=== PATIENT | male | born 1940 | race Caucasian/White ===

== ENCOUNTER 2019-10-21 11:09 | Inpatient (IN) | payer MEDICARE ==
[2019-10-21 11:48] LABS: Absolute Neutrophil Ct (ANC) 17.04 (1.4-6.9); BASOPHIL % 0.2 % (0.0-0.4); Basophil (Absolute #) 0.03 (0-0.4); Eosinophil (Absolute #) 0 (0-0.5); Hematocrit 36.7 % (42-50); Hemoglobin 12.1 gm/dl (12.5-18.0); Lymphocyte (Absolute #) 0.85 (1.0-4.6); Lymphocytes % 4.4 % (24.0-44.0); Mean Cell Volume 97.1 fl (78-100); Mean Platelet Volume 10.3 fl (7.5-11.0); Monocyte (Absolute #) 1.47 (0.0-1.3); Monocytes % 7.6 % (0.0-12.0); Neutrophil % 87.8 % (36.0-66.0); Platelet Count 171 K/mm3 (150-450); Red Blood Count 3.78 M/mm3 (4.1-5.6); Red Cell Distribution Width 13.6 % (11.5-14.0); White Blood Count 19.4 K/mm3 (4.0-10.5)
[2019-10-21 11:55] LABS: INR 1.31 (0.8-3.0); PROTIME 14.9 SECONDS (8.83-12.87)
[2019-10-21 11:58] LABS: PTT 27.2 SECONDS (24.1-36.1)
[2019-10-21 11:59] LABS: A-aADO2 35; ABG HEMOGLOBIN 14.8; ABG SITE RIGHT RADIAL; ALLEN TEST OK? YES; ARTERIAL BLD GAS O2 SATURATION 97.4 % (95-100); ARTERIAL BLOOD GAS BASE EXCESS 1.6 (-2.0-2.0); ARTERIAL BLOOD GAS FIO2 21 %; ARTERIAL BLOOD GAS PCO2 33 mmHg (35-45); ARTERIAL BLOOD GAS PO2 73 mmHg (75-100); ARTERIAL BLOOD GAS pH 7.48 (7.35-7.45); CARBOXYHEMOGLOBIN 1.5 % THgb (0.0-6.9); HCO3- 24.6 (22-28); HGB O2 SAT 94.9 g/dF (94-100); Methhemoglobin 1.1 % (1.4-1.5); paO2 pAO1 0.68
--- NOTE | 2019-10-21 11:59 | ERPHSYRPT ---
- History of Present Illness Time Seen by Provider: 10/21/19 11:19 Source: patient Exam Limitations: no limitations Physician History: Patient is an 79-year-old male presents to our ED for evaluation of a fall. Patient stood up from his chair and fell onto his left elbow. Patient states that his body was shivering. He could not stand back up on his own. Patient crawled to the bathroom. Patient presented to our ED for evaluation of elbow pain. However in triage patient was observed to be febrile. Patient then complains of shortness of breath. Patient symptoms have been ongoing for 1 day. Symptoms have been constant. No associated chest pain or shortness of breath. Patient denied Covid-19 exposure. Timing/Duration: today Fever Severity: mild Fever Therapy [employer]: none Associated Symptoms: weakness International travel in last 2 weeks: No Allergies/Adverse Reactions: Penicillins Allergy (Verified 10/21/19 12:09) Sulfa (Sulfonamide Antibiotics) Allergy (Verified 10/21/19 12:09) Home Medications: Aspirin 81 mg PO DAILY 09/18/13 [History] Ascorbic Acid 500 mg [Vitamin C 500 MG] 500 mg PO DAILY 04/11/16 [History] Calcium [Natural Calcium] 500 mg PO DAILY 04/11/16 [History] Ferrous Sulfate 325 mg PO DAILY 04/11/16 [History] Iron 18 mg PO DAILY 04/11/16 [History] Lovastatin 40 mg PO DAILY 04/11/16 [History] Metoprolol Succinate 25 mg PO DAILY 04/11/16 [History] Tamsulosin HCl 0.4 mg [Flomax 0.4 MG] 0.4 mg PO DAILY 04/11/16 [History] Cinacalcet HCl 60 mg PO DAILY 10/21/19 [History] Hx Tetanus, Diphtheria Vaccination/Date Given: Yes (up to date) Hx Influenza Vaccination/Date Given: Yes Hx Pneumococcal Vaccination/Date Given: Yes Travel Risk - International Travel Have you traveled outside of the country in past 3 weeks: No Have you or anyone close to you been diagnosed with or: No Do your reside in a community with a known COVID-19 case?: Yes If Yes where:: [place] - Review of Systems Constitutional: No Symptoms, Weakness, No Fever, No Chills Eyes: No Symptoms Ears, Nose, & Throat: No Symptoms Respiratory: No Symptoms, Cough, Dyspnea on Exertion (GARCIA), No Dyspnea Cardiac: No Chest Pain, No Edema, No Syncope Abdominal/Gastrointestinal: No Abdominal Pain, No Nausea, No Vomiting, No Diarrhea Genitourinary Symptoms: No Dysuria Musculoskeletal: Other (Left elbow pain. No other musculoskeletal pain.), No Back Pain, No Neck Pain Skin: No Symptoms, No Rash Neurological: No Symptoms, Focal Weakness, No Dizziness, No Sensory Changes Psychological: No Symptoms Endocrine: No Symptoms Hematologic/Lymphatic: No Symptoms All Other Systems: Reviewed and Negative - Past Medical History Pertinent Past Medical History: Yes Neurological History: No Pertinent History ENT History: No Pertinent History Cardiac History: Congestive Heart Failure Respiratory History: Asthma Endocrine Medical History: No Pertinent History Musculoskeletal History: Arthritis GI Medical History: No Pertinent History History: No Pertinent History Psycho-Social History: No Pertinent History Male Reproductive Disorders: No Pertinent History Other Medical History: poor historian - Past Surgical History Past Surgical History: Yes Gastrointestinal: Other Other Surgical History: KIDNEY STONE REMOVAL. poor historian - Social History Smoking Status: Former smoker Exposure to second hand smoke: No Drug Use: none Patient Lives Alone: Yes - Nursing Vital Signs Nursing Vital Signs: Initial Vital Signs Temperature 100.1 F 10/21/19 11:43 Pulse Rate 112 H 10/21/19 11:43 Blood Pressure 148/78 10/21/19 11:43 O2 Sat by Pulse Oximetry 95 10/21/19 11:43 Pain Scale Pain Intensity 0 - Physical Exam General Appearance: no apparent distress, alert Eye Exam: PERRL/EOMI ENT Exam: normal ENT inspection, No pharyngeal erythema, No tonsillar exudate Neck Exam: normal inspection, supple, full range of motion, No meningismus Respiratory Exam: normal breath sounds, lungs clear, no respiratory distress Cardiovascular/Chest Exam: normal heart sounds, regular rate/rhythm, No murmur, No edema Gastrointestinal/Abdominal Exam: soft, non tender, no distention Extremity Exam: non-tender, normal range of motion, normal inspection, normal capillary refill, no pedal edema, joint swelling (Some tenderness at right elbow. No open or draining lesions. Extremities neurovascular intact distally. ) Neurologic Exam: alert, oriented x 3, cooperative, deputy grand jury II-XII nml as tested, normal mood/affect, sensation nml, No motor deficits Skin Exam: normal color, warm, dry, No rash SpO2 Interpretation: normal SpO2: 98 O2 Delivery: Room Air - Course Nursing assessment & vital signs reviewed: Yes EKG Interpreted by Me: Sinus Tach, NORMAL AXIS, Right [place] Deviation, Non- specific ST Changes - Radiology Exams Chest X-ray Interpretation: Teleradiologist Report (No acute pathology) Elbow X-ray Interpretation: Teleradiologist Report (no fracture/dislocation, chronic changes. ) Ordered Tests: Active Orders 24 hr Category Date Time Status Forensic Analyst STAT Care 10/21/19 11:22 Active EKG-ER Only STAT Care 10/21/19 11:19 Active IV Insertion STAT Care 10/21/19 11:19 Active Isolation, Initiate & Maintain Q12H Care 10/21/19 12:07 Active Isolation, Initiate & Maintain Q4H Care 10/21/19 11:34 Active Pulse Oximetry (ED) STAT Care 10/21/19 11:19 Active CHEST 1 VIEW (PORTABLE) Stat Exams 10/21/19 11:21 Completed ELBOW (MINIMUM 3 VIEWS) Stat Exams 10/21/19 11:43 Completed ARTERIAL BLOOD GASES Stat Lab 10/21/19 11:56 Completed BLOOD CULTURE Stat Lab 10/21/19 11:21 Received CBC W DIFF Stat Lab 10/21/19 11:35 Completed CMP Stat Lab 10/21/19 11:35 Completed CULTURE,URINE Stat Lab 10/21/19 Received Lactic Acid Stat Lab 10/21/19 11:56 Completed MAGNESIUM Stat Lab 10/21/19 11:35 Completed PROTIME WITH INR Stat Lab 10/21/19 11:35 Completed PTT Stat Lab 10/21/19 11:35 Completed TROPONIN Q3H Lab 10/21/19 11:35 Completed TROPONIN Q3H Lab 10/21/19 14:30 Ordered TROPONIN Q3H Lab 10/21/19 17:30 Ordered TROPONIN Q3H Lab 10/21/19 20:30 Ordered TROPONIN Q3H Lab 10/21/19 23:30 Ordered UA W/RFX UR CULTURE Stat Lab 10/21/19 Completed Transfer Order Routine Transfer 10/21/19 Ordered Medication Summary Generic Name Dose Route Start Last Admin Trade Name Freq PRN Reason Stop Dose Admin Sodium Chloride 1,000 mls @ 100 mls/hr 10/21/19 12:45 10/21/19 12:57 Sodium Chloride 0.9% 1000 Ml IV 11/20/19 12:44 100 mls/hr .Q10H TREY Administration Levofloxacin/Dextrose 250 mg in 50 mls @ 50 mls/hr 10/21/19 12:52 10/21/19 12 :57 Levaquin 250mg/50ml D5w IV 10/21/19 13:51 50 mls/hr STAT STA 50 mls/hr Administration Discontinued Medications Generic Name Dose Route Start Last Admin Trade Name Antonio PRN Reason Stop Dose Admin Levofloxacin/Dextrose Confirm 10/21/19 12:56 Levaquin 250mg/50ml D5w Administered 10/21/19 12:57 Dose 250 mg in 50 mls @ ud IV .STK-MED ONE Lab/Rad Data: Laboratory Result Diagrams 10/21/19 11:35 10/21/19 11:35 Laboratory Results 10/21/19 10/21/19 10/21/19 Range/Units Unknown 11:56 11:56 WBC (4.0-10.5) K/mm3 RBC (4.1-5.6) M/mm3 Hgb (12.5-18.0) gm/dl Hct (42-50) % MCV (78-100) fl MCH (26-32) pg MCHC (32-36) g/dl RDW (11.5-14.0) % Plt Count (150-450) K/mm3 MPV (7.5-11.0) fl Gran % (36.0-66.0) % Eos # (Auto) (0-0.5) Absolute Lymphs (auto) (1.0-4.6) Absolute Monos (auto) (0.0-1.3) Lymphocytes % (24.0-44.0) % Monocytes % (0.0-12.0) % Eosinophils % (0.00-5.0) % Basophils % (0.0-0.4) % Absolute Granulocytes (1.4-6.9) Basophils # (0-0.4) PT (8.83-12.87) SECONDS INR (0.8-3.0) APTT (24.1-36.1) SECONDS Puncture Site RIGHT RADIAL pCO2 33 L (35-45) mmHg pO2 73 L (75-100) mmHg Base Excess 1.6 (-2.0-2.0) O2 Saturation 94.9 (94-100) g/dF ABG pH 7.48 H (7.35-7.45) ABG HCO3 24.6 (22-28) ABG O2 Sat (Measured) 97.4 (95-100) % Ermias Test YES A-a Gradient 35 a/A Ratio 0.68 Hemoglobin 14.8 Carboxyhemoglobin 1.5 (0.0-6.9) % THgb Methemoglobin 1.1 L (1.4-1.5) % Temperature 37.0 C POC O2 Flow Rate 21 % Sodium (137-145) mmol/L Potassium 4.0 (3.5-5.1) mmol/L Chloride (98-107) mmol/L Carbon Dioxide (22-30) mmol/L Anion Gap (5-15) MEQ/L BUN (9-20) mg/dL Creatinine (0.66-1.25) mg/dL Estimated GFR ML/MIN Glucose (74-106) mg/dL Lactic Acid 1.9 (0.4-2.0) Calcium (8.4-10.2) mg/dL Magnesium (1.6-2.3) mg/dL Total Bilirubin (0.2-1.3) mg/dL AST (17-59) U/L ALT (0-50) U/L Alkaline Phosphatase (38-126) U/L Troponin I (0.000-0.034) ng/mL Serum Total Protein (6.3-8.2) g/dL Albumin (3.5-5.0) g/dL Urine Color MIKE (YELLOW) Urine Appearance TURBID (CLEAR) Urine pH 5.0 (5-6) Ur Specific [place] 1.019 (1.005-1.025) Urine Protein 100 (Negative) Urine Ketones NEGATIVE (NEGATIVE) Urine Blood LARGE (0-5) Isai/ul Urine Nitrite NEGATIVE (NEGATIVE) Urine Bilirubin NEGATIVE (NEGATIVE) Urine Urobilinogen NEGATIVE (0-1) mg/dL Ur Leukocyte Esterase LARGE (NEGATIVE) Urine WBC (Auto) >100 (0-5) /HPF Urine RBC (Auto) 26-50 (0-2) /HPF U Epithel Cells (Auto) NONE (FEW) /HPF Urine Bacteria (Auto) MODERATE (NEGATIVE) /HPF Urine Culture Reflexed YES (NO) Urine Glucose NEGATIVE (NEGATIVE) mg/dL Influenza Type A Ag (NEGATIVE) Influenza Type B Ag (NEGATIVE) RSV (PCR) (Negative) 10/21/19 10/21/19 10/21/19 Range/Units 11:35 11:35 11:35 WBC (4.0-10.5) K/mm3 RBC (4.1-5.6) M/mm3 Hgb (12.5-18.0) gm/dl Hct (42-50) % MCV (78-100) fl MCH (26-32) pg MCHC (32-36) g/dl RDW (11.5-14.0) % Plt Count (150-450) K/mm3 MPV (7.5-11.0) fl Gran % (36.0-66.0) % Eos # (Auto) (0-0.5) Absolute Lymphs (auto) (1.0-4.6) Absolute Monos (auto) (0.0-1.3) Lymphocytes % (24.0-44.0) % Monocytes % (0.0-12.0) % Eosinophils % (0.00-5.0) % Basophils % (0.0-0.4) % Absolute Granulocytes (1.4-6.9) Basophils # (0-0.4) PT 14.9 H (8.83-12.87) SECONDS INR 1.31 (0.8-3.0) APTT 27.2 (24.1-36.1) SECONDS Puncture Site pCO2 (35-45) mmHg pO2 (75-100) mmHg Base Excess (-2.0-2.0) O2 Saturation (94-100) g/dF ABG pH (7.35-7.45) ABG HCO3 (22-28) ABG O2 Sat (Measured) (95-100) % Ermias Test A-a Gradient a/A Ratio Hemoglobin Carboxyhemoglobin (0.0-6.9) % THgb Methemoglobin (1.4-1.5) % Temperature C POC O2 Flow Rate % Sodium (137-145) mmol/L Potassium (3.5-5.1) mmol/L Chloride (98-107) mmol/L Carbon Dioxide (22-30) mmol/L Anion Gap (5-15) MEQ/L BUN (9-20) mg/dL Creatinine (0.66-1.25) mg/dL Estimated GFR ML/MIN Glucose (74-106) mg/dL Lactic Acid (0.4-2.0) Calcium (8.4-10.2) mg/dL Magnesium (1.6-2.3) mg/dL Total Bilirubin (0.2-1.3) mg/dL AST (17-59) U/L ALT (0-50) U/L Alkaline Phosphatase (38-126) U/L Troponin I 0.081 H* (0.000-0.034) ng/mL Serum Total Protein (6.3-8.2) g/dL Albumin (3.5-5.0) g/dL Urine Color (YELLOW) Urine Appearance (CLEAR) Urine pH (5-6) Ur Specific [place] (1.005-1.025) Urine Protein (Negative) Urine Ketones (NEGATIVE) Urine Blood (0-5) Isai/ul Urine Nitrite (NEGATIVE) Urine Bilirubin (NEGATIVE) Urine Urobilinogen (0-1) mg/dL Ur Leukocyte Esterase (NEGATIVE) Urine WBC (Auto) (0-5) /HPF Urine RBC (Auto) (0-2) /HPF U Epithel Cells (Auto) (FEW) /HPF Urine Bacteria (Auto) (NEGATIVE) /HPF Urine Culture Reflexed (NO) Urine Glucose (NEGATIVE) mg/dL Influenza Type A Ag NEGATIVE (NEGATIVE) Influenza Type B Ag NEGATIVE (NEGATIVE) RSV (PCR) NEGATIVE (Negative) 10/21/19 10/21/19 Range/Units 11:35 11:35 WBC 19.4 H (4.0-10.5) K/mm3 RBC 3.78 L (4.1-5.6) M/mm3 Hgb 12.1 L (12.5-18.0) gm/dl Hct 36.7 L (42-50) % MCV 97.1 (78-100) fl MCH 32.0 (26-32) pg MCHC 33.0 (32-36) g/dl RDW 13.6 (11.5-14.0) % Plt Count 171 (150-450) K/mm3 MPV 10.3 (7.5-11.0) fl Gran % 87.8 H (36.0-66.0) % Eos # (Auto) 0 (0-0.5) Absolute Lymphs (auto) 0.85 L (1.0-4.6) Absolute Monos (auto) 1.47 H (0.0-1.3) Lymphocytes % 4.4 L (24.0-44.0) % Monocytes % 7.6 (0.0-12.0) % Eosinophils % 0.0 (0.00-5.0) % Basophils % 0.2 (0.0-0.4) % Absolute Granulocytes 17.04 H (1.4-6.9) Basophils # 0.03 (0-0.4) PT (8.83-12.87) SECONDS INR (0.8-3.0) APTT (24.1-36.1) SECONDS Puncture Site pCO2 (35-45) mmHg pO2 (75-100) mmHg Base Excess (-2.0-2.0) O2 Saturation (94-100) g/dF ABG pH (7.35-7.45) ABG HCO3 (22-28) ABG O2 Sat (Measured) (95-100) % Ermias Test A-a Gradient a/A Ratio Hemoglobin Carboxyhemoglobin (0.0-6.9) % THgb Methemoglobin (1.4-1.5) % Temperature C POC O2 Flow Rate % Sodium 145 (137-145) mmol/L Potassium 4.2 (3.5-5.1) mmol/L Chloride 105 (98-107) mmol/L Carbon Dioxide 27 (22-30) mmol/L Anion Gap 16.7 H (5-15) MEQ/L BUN 39 H (9-20) mg/dL Creatinine 3.28 H (0.66-1.25) mg/dL Estimated GFR 19.4 ML/MIN Glucose 172 H (74-106) mg/dL Lactic Acid (0.4-2.0) Calcium 10.5 H (8.4-10.2) mg/dL Magnesium 1.7 (1.6-2.3) mg/dL Total Bilirubin 0.90 (0.2-1.3) mg/dL AST 143 H (17-59) U/L ALT 36 (0-50) U/L Alkaline Phosphatase 96 (38-126) U/L Troponin I (0.000-0.034) ng/mL Serum Total Protein 7.7 (6.3-8.2) g/dL Albumin 4.4 (3.5-5.0) g/dL Urine Color (YELLOW) Urine Appearance (CLEAR) Urine pH (5-6) Ur Specific [place] (1.005-1.025) Urine Protein (Negative) Urine Ketones (NEGATIVE) Urine Blood (0-5) Isai/ul Urine Nitrite (NEGATIVE) Urine Bilirubin (NEGATIVE) Urine Urobilinogen (0-1) mg/dL Ur Leukocyte Esterase (NEGATIVE) Urine WBC (Auto) (0-5) /HPF Urine RBC (Auto) (0-2) /HPF U Epithel Cells (Auto) (FEW) /HPF Urine Bacteria (Auto) (NEGATIVE) /HPF Urine Culture Reflexed (NO) Urine Glucose (NEGATIVE) mg/dL Influenza Type A Ag (NEGATIVE) Influenza Type B Ag (NEGATIVE) RSV (PCR) (Negative) - Progress Progress: improved Progress Note: Patient reassessed. Symptoms improved. IV fluids infused. Antibiotics ordered. Patient appears to have urosepsis, dehydration with acute on chronic renal injury. Troponin somewhat elevated likely due to worsening renal function. We will trend troponin. Patient has no chest pain. 10/21/19 13:[address] Priyank Will see patient in: hospital (full admit) Counseled pt/family regarding: lab results, diagnosis, rad results - Departure Departure Disposition: In-patient Admission Clinical Impression: Sepsis, Dehydration, Acute renal injury, Leukocytosis, Tachycardia, Elbow contusion, Osteopenia, UTI (urinary tract infection), Elevated troponin Condition: Stable Critical Care Time: Yes Critical Care Time(excluding separately billable procedures): Critical 75-104 mins Referrals: AYANNA FARR [Primary Care Provider] -
[2019-10-21 12:00] LABS: ALBUMIN 4.4 g/dL (3.5-5.0); ANION GAP 16.7 MEQ/L (5-15); BILIRUBIN,TOTAL 0.9 mg/dL (0.2-1.3); Calcium 10.5 mg/dL (8.4-10.2); Creatinine 1 3.28 mg/dL (0.66-1.25); MAGNESIUM 1.7 mg/dL (1.6-2.3); Potassium 4.2 mmol/L (3.5-5.1); Total Protein 7.7 g/dL (6.3-8.2)
[2019-10-21 12:18] LABS: INFLUENZA A NEGATIVE (NEGATIVE); INFLUENZA B NEGATIVE (NEGATIVE); RESPIRATORY SYNCTIAL VIRUS NEGATIVE (Negative)
[2019-10-21 12:23] LABS: Appearance TURBID (CLEAR); Bacteria MODERATE /HPF (NEGATIVE); Bilirubin NEGATIVE (NEGATIVE); Blood LARGE Ery/ul (0-5); Glucose NEGATIVE (NEGATIVE); Ketones NEGATIVE (NEGATIVE); Leukocyte Esterase LARGE (NEGATIVE); Nitrite NEGATIVE (NEGATIVE); Protein,Urine Dip 100 (Negative); RBC 26-50 /HPF (0-2); Specific Gravity 1.019 (1.005-1.025); Urobilinogen NEGATIVE mg/dL (0-1); WBC >100 /HPF (0-5)
--- NOTE | 2019-10-21 12:26 | XRAY ---
Indication: Short of breath. Status post fall. Comparison: August 30, 2014. Portable chest again demonstrates normal heart and lungs. Bony thorax intact with mild osteopenia, degenerative changes, and old right 8/9 rib fractures. No new/acute findings.
--- NOTE | 2019-10-21 12:28 | XRAY ---
Indication: Pain following fall. Comparison: None 3 views of the right elbow demonstrates mild osteopenia and spurring of the olecranon process/coronoid process/medial epicondyle. No other bony, articular, or soft tissue abnormalities.
[2019-10-21] MEDS ORDERED: Sodium Chloride 0.9% 1000 ML 1,000 ML IV SCH (12:45)
[2019-10-21] MEDS ORDERED: Levaquin 250MG/50ML D5W 250 MG/50 ML BAG IV STA (12:52)
[2019-10-21] MEDS ORDERED: Levaquin 250MG/50ML D5W 250 MG/50 ML BAG IV ONE (12:56)
[2019-10-21] MEDS ORDERED: Sodium Chloride 0.9% 1000 ML 1,000 ML ONE (12:56)
[2019-10-21] MEDS ORDERED: Zofran 4 MG/2 ML VIAL IV PRN (13:25)
[2019-10-21 15:03] LABS: Slide Review 1 YES
[2019-10-21] MEDS: TYLENOL 325 MG PO PRN (16:15)
--- NOTE | 2019-10-21 16:30 | PCM.HP ---
History of Present Illness - Chief Complaint Chief Complaint: Urosepsis. Dehydraiton. Actue Renal. Injury. Leukocytosis. Suspect Covid. History of Present Illness: is a 79 year old male patient of Dr Dahlia Reza, he presented to the ER because he woke up this morning feeling weak and dizzy, he lindsey to stand and fell back on his bed. he had to crawl to the restroom due to feeling dizzy and weak, he denies any known fever, no urinary symptoms, no cough, no chest pain or any other symptoms before he woke up weak and dizzy this morning. - Review of Systems Constitutional: Chills, Weakness Respiratory: No Cough, No Short Of Breath Cardiac: No Chest Pain, No Edema, No Syncope Abdominal/Gastrointestinal: No Abdominal Pain, No Nausea, No Vomiting, No Diarrhea Genitourinary Symptoms: No Dysuria Skin: No Rash All Other Systems: Reviewed and Negative Medications & Allergies Home Medications: Home Medication List Aspirin 81 mg PO DAILY 09/18/13 [History Confirmed 10/21/19] Ascorbic Acid 500 mg [Vitamin C 500 MG] 500 mg PO DAILY 04/11/16 [History Confirmed 10/21/19] Calcium [Natural Calcium] 500 mg PO DAILY 04/11/16 [History Confirmed 10/21/19] Ferrous Sulfate 325 mg PO DAILY 04/11/16 [History Confirmed 10/21/19] Iron 18 mg PO DAILY 04/11/16 [History Confirmed 10/21/19] Lovastatin 40 mg PO DAILY 04/11/16 [History Confirmed 10/21/19] Metoprolol Succinate 25 mg PO DAILY 04/11/16 [History Confirmed 10/21/19] Tamsulosin HCl 0.4 mg [Flomax 0.4 MG] 0.4 mg PO DAILY 04/11/16 [History Confirmed 10/21/19] Cinacalcet HCl 60 mg PO DAILY 10/21/19 [History Confirmed 10/21/19] Allergies/Adverse Reactions: Allergies Allergy/AdvReac Type Severity Reaction Status Date / Time Penicillins Allergy Verified 10/21/19 12:09 Sulfa (Sulfonamide Allergy Verified 10/21/19 12:09 Antibiotics) - Past Medical History Past Medical History: Yes Neurological History: No Pertinent History ENT History: No Pertinent History Cardiac History: Congestive Heart Failure Respiratory History: Asthma Endocrine Medical History: No Pertinent History Musculoskelatal History: Arthritis GI Medical History: No Pertinent History History: No Pertinent History Pyscho-Social History: No Pertinent History Male Reproductive Disorders: No Pertinent History Comment: poor historian - Past Surgical History Past Surgical History: Yes Neuro Surgical History: No Pertinent History Cardiac History: No Pertinent History Respiratory Surgery: No Pertinent History GI Surgical History: No Pertinent History, Other Genitourinary Surgical Hx: No Pertinent History Musculskeletal Surgical Hx: No Pertinent History Other Surgical History: KIDNEY STONE REMOVAL. poor historian - Social History Smoking Status: Former smoker How long have you smoked: 30 years Exposure to second hand smoke: No Alcohol: None Drug Use: none - Physical Exam Vital Signs: Vital Signs - 24 hr Temp Pulse Resp BP Pulse Ox 10/21/19 16:12 100.5 F 131 H 22 118/59 98 10/21/19 15:12 102.0 F 104 H 18 159/83 94 L 10/21/19 14:05 94 L 10/21/19 13:25 102.0 F 104 H 18 159/83 98 10/21/19 13:13 98 10/21/19 13:00 102.0 F 104 H 18 159/83 98 10/21/19 12:07 100.1 F 103 H 142/68 98 10/21/19 11:43 100.1 F 112 H 148/78 95 General Appearance: no apparent distress Neurologic Exam: alert, cooperative Eye Exam: PERRL/EOMI, eyes nml inspection Respiratory Exam: normal breath sounds, lungs clear, No respiratory distress Cardiovascular Exam: regular rate/rhythm, normal heart sounds, normal peripheral pulses Gastrointestinal/Abdomen Exam: soft, normal bowel sounds, No tenderness, No mass Extremity Exam: normal inspection, normal range of motion, pelvis stable Skin Exam: normal color, warm, dry, No rash Results - Labs Lab/Micro Results: Lab Results-Last 24 Hours 10/21/19 10/21/19 10/21/19 Range/Units 11:35 11:35 11:35 WBC 19.4 H (4.0-10.5) K/mm3 RBC 3.78 L (4.1-5.6) M/mm3 Hgb 12.1 L (12.5-18.0) gm/dl Hct 36.7 L (42-50) % MCV 97.1 (78-100) fl MCH 32.0 (26-32) pg MCHC 33.0 (32-36) g/dl RDW 13.6 (11.5-14.0) % Plt Count 171 (150-450) K/mm3 MPV 10.3 (7.5-11.0) fl Gran % 87.8 H (36.0-66.0) % Eos # (Auto) 0 (0-0.5) Absolute Lymphs (auto) 0.85 L (1.0-4.6) Absolute Monos (auto) 1.47 H (0.0-1.3) Lymphocytes % 4.4 L (24.0-44.0) % Monocytes % 7.6 (0.0-12.0) % Eosinophils % 0.0 (0.00-5.0) % Basophils % 0.2 (0.0-0.4) % Absolute Granulocytes 17.04 H (1.4-6.9) Basophils # 0.03 (0-0.4) PT 14.9 H (8.83-12.87) SECONDS INR 1.31 (0.8-3.0) APTT 27.2 (24.1-36.1) SECONDS Puncture Site pCO2 (35-45) mmHg pO2 (75-100) mmHg Base Excess (-2.0-2.0) O2 Saturation (94-100) g/dF ABG pH (7.35-7.45) ABG HCO3 (22-28) ABG O2 Sat (Measured) (95-100) % Ermias Test A-a Gradient a/A Ratio Hemoglobin Carboxyhemoglobin (0.0-6.9) % THgb Methemoglobin (1.4-1.5) % Temperature C POC O2 Flow Rate % Sodium 145 (137-145) mmol/L Potassium 4.2 (3.5-5.1) mmol/L Chloride 105 (98-107) mmol/L Carbon Dioxide 27 (22-30) mmol/L Anion Gap 16.7 H (5-15) MEQ/L BUN 39 H (9-20) mg/dL Creatinine 3.28 H (0.66-1.25) mg/dL Estimated GFR 19.4 ML/MIN Glucose 172 H (74-106) mg/dL Lactic Acid (0.4-2.0) Calcium 10.5 H (8.4-10.2) mg/dL Magnesium 1.7 (1.6-2.3) mg/dL Total Bilirubin 0.90 (0.2-1.3) mg/dL AST 143 H (17-59) U/L ALT 36 (0-50) U/L Alkaline Phosphatase 96 (38-126) U/L Troponin I (0.000-0.034) ng/mL Serum Total Protein 7.7 (6.3-8.2) g/dL Albumin 4.4 (3.5-5.0) g/dL Urine Color (YELLOW) Urine Appearance (CLEAR) Urine pH (5-6) Ur Specific Glidden (1.005-1.025) Urine Protein (Negative) Urine Ketones (NEGATIVE) Urine Blood (0-5) Isai/ul Urine Nitrite (NEGATIVE) Urine Bilirubin (NEGATIVE) Urine Urobilinogen (0-1) mg/dL Ur Leukocyte Esterase (NEGATIVE) Urine WBC (Auto) (0-5) /HPF Urine RBC (Auto) (0-2) /HPF U Epithel Cells (Auto) (FEW) /HPF Urine Bacteria (Auto) (NEGATIVE) /HPF Urine Culture Reflexed (NO) Urine Glucose (NEGATIVE) mg/dL Influenza Type A Ag (NEGATIVE) Influenza Type B Ag (NEGATIVE) RSV (PCR) (Negative) Slides for Path Review YES 10/21/19 10/21/19 10/21/19 Range/Units 11:35 11:35 11:56 WBC (4.0-10.5) K/mm3 RBC (4.1-5.6) M/mm3 Hgb (12.5-18.0) gm/dl Hct (42-50) % MCV (78-100) fl MCH (26-32) pg MCHC (32-36) g/dl RDW (11.5-14.0) % Plt Count (150-450) K/mm3 MPV (7.5-11.0) fl Gran % (36.0-66.0) % Eos # (Auto) (0-0.5) Absolute Lymphs (auto) (1.0-4.6) Absolute Monos (auto) (0.0-1.3) Lymphocytes % (24.0-44.0) % Monocytes % (0.0-12.0) % Eosinophils % (0.00-5.0) % Basophils % (0.0-0.4) % Absolute Granulocytes (1.4-6.9) Basophils # (0-0.4) PT (8.83-12.87) SECONDS INR (0.8-3.0) APTT (24.1-36.1) SECONDS Puncture Site RIGHT RADIAL pCO2 33 L (35-45) mmHg pO2 73 L (75-100) mmHg Base Excess 1.6 (-2.0-2.0) O2 Saturation 94.9 (94-100) g/dF ABG pH 7.48 H (7.35-7.45) ABG HCO3 24.6 (22-28) ABG O2 Sat (Measured) 97.4 (95-100) % Ermias Test YES A-a Gradient 35 a/A Ratio 0.68 Hemoglobin 14.8 Carboxyhemoglobin 1.5 (0.0-6.9) % THgb Methemoglobin 1.1 L (1.4-1.5) % Temperature 37.0 C POC O2 Flow Rate 21 % Sodium (137-145) mmol/L Potassium 4.0 (3.5-5.1) mmol/L Chloride (98-107) mmol/L Carbon Dioxide (22-30) mmol/L Anion Gap (5-15) MEQ/L BUN (9-20) mg/dL Creatinine (0.66-1.25) mg/dL Estimated GFR ML/MIN Glucose (74-106) mg/dL Lactic Acid (0.4-2.0) Calcium (8.4-10.2) mg/dL Magnesium (1.6-2.3) mg/dL Total Bilirubin (0.2-1.3) mg/dL AST (17-59) U/L ALT (0-50) U/L Alkaline Phosphatase (38-126) U/L Troponin I 0.081 H* (0.000-0.034) ng/mL Serum Total Protein (6.3-8.2) g/dL Albumin (3.5-5.0) g/dL Urine Color (YELLOW) Urine Appearance (CLEAR) Urine pH (5-6) Ur Specific Glidden (1.005-1.025) Urine Protein (Negative) Urine Ketones (NEGATIVE) Urine Blood (0-5) Isai/ul Urine Nitrite (NEGATIVE) Urine Bilirubin (NEGATIVE) Urine Urobilinogen (0-1) mg/dL Ur Leukocyte Esterase (NEGATIVE) Urine WBC (Auto) (0-5) /HPF Urine RBC (Auto) (0-2) /HPF U Epithel Cells (Auto) (FEW) /HPF Urine Bacteria (Auto) (NEGATIVE) /HPF Urine Culture Reflexed (NO) Urine Glucose (NEGATIVE) mg/dL Influenza Type A Ag NEGATIVE (NEGATIVE) Influenza Type B Ag NEGATIVE (NEGATIVE) RSV (PCR) NEGATIVE (Negative) Slides for Path Review 10/21/19 10/21/19 10/21/19 Range/Units 11:56 14:01 14:45 WBC (4.0-10.5) K/mm3 RBC (4.1-5.6) M/mm3 Hgb (12.5-18.0) gm/dl Hct (42-50) % MCV (78-100) fl MCH (26-32) pg MCHC (32-36) g/dl RDW (11.5-14.0) % Plt Count (150-450) K/mm3 MPV (7.5-11.0) fl Gran % (36.0-66.0) % Eos # (Auto) (0-0.5) Absolute Lymphs (auto) (1.0-4.6) Absolute Monos (auto) (0.0-1.3) Lymphocytes % (24.0-44.0) % Monocytes % (0.0-12.0) % Eosinophils % (0.00-5.0) % Basophils % (0.0-0.4) % Absolute Granulocytes (1.4-6.9) Basophils # (0-0.4) PT (8.83-12.87) SECONDS INR (0.8-3.0) APTT (24.1-36.1) SECONDS Puncture Site pCO2 (35-45) mmHg pO2 (75-100) mmHg Base Excess (-2.0-2.0) O2 Saturation (94-100) g/dF ABG pH (7.35-7.45) ABG HCO3 (22-28) ABG O2 Sat (Measured) (95-100) % Ermias Test A-a Gradient a/A Ratio Hemoglobin Carboxyhemoglobin (0.0-6.9) % THgb Methemoglobin (1.4-1.5) % Temperature C POC O2 Flow Rate % Sodium (137-145) mmol/L Potassium (3.5-5.1) mmol/L Chloride (98-107) mmol/L Carbon Dioxide (22-30) mmol/L Anion Gap (5-15) MEQ/L BUN (9-20) mg/dL Creatinine (0.66-1.25) mg/dL Estimated GFR ML/MIN Glucose (74-106) mg/dL Lactic Acid 1.9 2.4 H (0.4-2.0) Calcium (8.4-10.2) mg/dL Magnesium (1.6-2.3) mg/dL Total Bilirubin (0.2-1.3) mg/dL AST (17-59) U/L ALT (0-50) U/L Alkaline Phosphatase (38-126) U/L Troponin I 0.068 H* (0.000-0.034) ng/mL Serum Total Protein (6.3-8.2) g/dL Albumin (3.5-5.0) g/dL Urine Color (YELLOW) Urine Appearance (CLEAR) Urine pH (5-6) Ur Specific Glidden (1.005-1.025) Urine Protein (Negative) Urine Ketones (NEGATIVE) Urine Blood (0-5) Isai/ul Urine Nitrite (NEGATIVE) Urine Bilirubin (NEGATIVE) Urine Urobilinogen (0-1) mg/dL Ur Leukocyte Esterase (NEGATIVE) Urine WBC (Auto) (0-5) /HPF Urine RBC (Auto) (0-2) /HPF U Epithel Cells (Auto) (FEW) /HPF Urine Bacteria (Auto) (NEGATIVE) /HPF Urine Culture Reflexed (NO) Urine Glucose (NEGATIVE) mg/dL Influenza Type A Ag (NEGATIVE) Influenza Type B Ag (NEGATIVE) RSV (PCR) (Negative) Slides for Path Review 10/21/19 Range/Units Unknown WBC (4.0-10.5) K/mm3 RBC (4.1-5.6) M/mm3 Hgb (12.5-18.0) gm/dl Hct (42-50) % MCV (78-100) fl MCH (26-32) pg MCHC (32-36) g/dl RDW (11.5-14.0) % Plt Count (150-450) K/mm3 MPV (7.5-11.0) fl Gran % (36.0-66.0) % Eos # (Auto) (0-0.5) Absolute Lymphs (auto) (1.0-4.6) Absolute Monos (auto) (0.0-1.3) Lymphocytes % (24.0-44.0) % Monocytes % (0.0-12.0) % Eosinophils % (0.00-5.0) % Basophils % (0.0-0.4) % Absolute Granulocytes (1.4-6.9) Basophils # (0-0.4) PT (8.83-12.87) SECONDS INR (0.8-3.0) APTT (24.1-36.1) SECONDS Puncture Site pCO2 (35-45) mmHg pO2 (75-100) mmHg Base Excess (-2.0-2.0) O2 Saturation (94-100) g/dF ABG pH (7.35-7.45) ABG HCO3 (22-28) ABG O2 Sat (Measured) (95-100) % Ermias Test A-a Gradient a/A Ratio Hemoglobin Carboxyhemoglobin (0.0-6.9) % THgb Methemoglobin (1.4-1.5) % Temperature C POC O2 Flow Rate % Sodium (137-145) mmol/L Potassium (3.5-5.1) mmol/L Chloride (98-107) mmol/L Carbon Dioxide (22-30) mmol/L Anion Gap (5-15) MEQ/L BUN (9-20) mg/dL Creatinine (0.66-1.25) mg/dL Estimated GFR ML/MIN Glucose (74-106) mg/dL Lactic Acid (0.4-2.0) Calcium (8.4-10.2) mg/dL Magnesium (1.6-2.3) mg/dL Total Bilirubin (0.2-1.3) mg/dL AST (17-59) U/L ALT (0-50) U/L Alkaline Phosphatase (38-126) U/L Troponin I (0.000-0.034) ng/mL Serum Total Protein (6.3-8.2) g/dL Albumin (3.5-5.0) g/dL Urine Color MIKE (YELLOW) Urine Appearance TURBID (CLEAR) Urine pH 5.0 (5-6) Ur Specific Glidden 1.019 (1.005-1.025) Urine Protein 100 (Negative) Urine Ketones NEGATIVE (NEGATIVE) Urine Blood LARGE (0-5) Isai/ul Urine Nitrite NEGATIVE (NEGATIVE) Urine Bilirubin NEGATIVE (NEGATIVE) Urine Urobilinogen NEGATIVE (0-1) mg/dL Ur Leukocyte Esterase LARGE (NEGATIVE) Urine WBC (Auto) >100 (0-5) /HPF Urine RBC (Auto) 26-50 (0-2) /HPF U Epithel Cells (Auto) NONE (FEW) /HPF Urine Bacteria (Auto) MODERATE (NEGATIVE) /HPF Urine Culture Reflexed YES (NO) Urine Glucose NEGATIVE (NEGATIVE) mg/dL Influenza Type A Ag (NEGATIVE) Influenza Type B Ag (NEGATIVE) RSV (PCR) (Negative) Slides for Path Review - Radiology Impressions Radiology Exams & Impressions: Radiology Procedures Category Date Time Status CHEST 1 VIEW (PORTABLE) Stat Exams 10/21/19 11:21 Completed ELBOW (MINIMUM 3 VIEWS) Stat Exams 10/21/19 11:43 Completed Assessment/Plan (1) Sepsis Current Visit: Yes Status: Acute Assessment & Plan: covid-19 swab pending, appears to have source of infection as acute pyelonephritis as source. continue fluids at this time (2) Acute renal injury Current Visit: Yes Status: Acute Assessment & Plan: rehydrate and treat UTI, reviewed code status and patient wishes to be a full code Code(s): N17.9 - ACUTE KIDNEY FAILURE, UNSPECIFIED (3) UTI (urinary tract infection) Current Visit: Yes Status: Acute Assessment & Plan: urine and blood cultures pending, continue levaquin GFR 19 dosed at 250mg IV q48hrs Code(s): N39.0 - URINARY TRACT INFECTION, SITE NOT SPECIFIED
[2019-10-21] MEDS: Toprol-Xl 25MG Tablets PO SCH (18:05)
[2019-10-21] MEDS: Flomax 0.4 MG PO SCH (18:05)
[2019-10-21] MEDS: ECOTRIN 81 MG PO SCH (18:05)
[2019-10-21] MEDS ORDERED: Sodium Chloride 0.9% 500 ML 500 ML IV ONE (19:34)
[2019-10-21] MEDS: Sodium Chloride 0.9% 1000 ML 1,000 ML IV SCH (19:37)
[2019-10-22] MEDS: TYLENOL 325 MG PO PRN ×2 (03:44→11:35)
[2019-10-22 05:27] LABS: Hematocrit 31.3 % (42-50); Hemoglobin 10.3 gm/dl (12.5-18.0); Mean Cell Volume 96.3 fl (78-100); Mean Corpuscular Hemoglobin 31.7 pg (26-32); Mean Corpuscular Hgb Concent. 32.9 g/dl (32-36); Mean Platelet Volume 10.4 fl (7.5-11.0); Platelet Count 133 K/mm3 (150-450); Red Blood Count 3.25 M/mm3 (4.1-5.6); Red Cell Distribution Width 13.7 % (11.5-14.0)
[2019-10-22] MEDS: Sodium Chloride 0.9% 1000 ML 1,000 ML IV SCH ×2 (05:46→14:46)
[2019-10-22 06:01] LABS: ALBUMIN 3.3 g/dL (3.5-5.0); ANION GAP 14.3 MEQ/L (5-15); BILIRUBIN,TOTAL 0.6 mg/dL (0.2-1.3); Calcium 9.4 mg/dL (8.4-10.2); Creatinine 1 3.12 mg/dL (0.66-1.25); Potassium 3.7 mmol/L (3.5-5.1); Total Protein 6.3 g/dL (6.3-8.2)
[2019-10-22 06:07] LABS: TROPONIN 0.074 ng/mL (0.000-0.034)
[2019-10-22 06:58] LABS: ANISOCYTOSIS 1+; BAND 5 % (0.0-2.0); Lymphocytes 6 % (24-44); Monocyte 2 % (0.0-12.0); Neutrophils 87 % (36.-66.); Platelet Estimate NORMAL (NORMAL); Total Cells Counted 100; Toxic Granulation 2+
--- NOTE | 2019-10-22 09:47 | PCM.NOTE ---
Date and Time: 10/22/1946 Subjective Assessment: patient tolerating po, thinks his strength is improved. was confused this morning but better now. urine output improved overnight Objective Exam General Appearance: no apparent distress Neurologic Exam: alert, cooperative Skin Exam: normal color, warm, dry Wound Assessment: Skin/Wound Assessment Wound/Incision Assessment Start: 10/21/19 15: 36 Text: Status: Active Freq: Q6H Protocol: Document 10/22/19 08:00 BA (Rec: 10/22/19 09:38 BA [id number]) Wound/Incision Assessment Knee Wound Assessment Shift Assessment Wound Type Abrasion Wound Stage Non Pressure Wound Dressing Status Dry & Intact Drainage Amount None General Appearance Unapproximated Comment farhana knee small abrasions r/t prior fall at home. Wound Photo Photo Taken No Respiratory Exam: normal breath sounds, lungs clear, No respiratory distress Cardiovascular Exam: regular rate/rhythm, normal heart sounds Gastrointestinal/Abdomen Exam: soft, No tenderness, No mass Extremity Exam: normal inspection, normal range of motion OBJECTIVE DATA Vital Signs: Vital Signs - 24 hr Temp Pulse Resp BP Pulse Ox 10/22/19 08:00 98.7 F 92 H 24 98/65 94 L 10/22/19 07:45 94 L 10/22/19 04:00 100.2 F 108 H 24 132/69 95 10/21/19 23:38 99.6 F 91 H 21 103/66 96 10/21/19 19:42 99.5 F 91 H 18 93/62 95 10/21/19 19:29 95 10/21/19 16:12 100.5 F 131 H 22 118/59 98 10/21/19 15:12 102.0 F 104 H 18 159/83 94 L 10/21/19 14:05 94 L 10/21/19 13:25 102.0 F 104 H 18 159/83 98 10/21/19 13:13 98 10/21/19 13:00 102.0 F 104 H 18 159/83 98 10/21/19 12:07 100.1 F 103 H 142/68 98 10/21/19 11:43 100.1 F 112 H 148/78 95 Pain Assessment - Last Documented Pain Intensity 0 Pain Scale Used 0-10 Pain Scale Intake and Output: Intake & Output 10/19/19 10/20/19 10/21/19 10/22/19 11:59 11:59 11:59 11:59 Intake Total 720 Output Total 250 Balance 470 Weight 72.575 kg 64.6 kg Lab Results: Lab Results-Last 24 Hours 10/21/19 10/21/19 10/21/19 Range/Units 11:35 11:35 11:35 WBC 19.4 H (4.0-10.5) K/mm3 RBC 3.78 L (4.1-5.6) M/mm3 Hgb 12.1 L (12.5-18.0) gm/dl Hct 36.7 L (42-50) % MCV 97.1 (78-100) fl MCH 32.0 (26-32) pg MCHC 33.0 (32-36) g/dl RDW 13.6 (11.5-14.0) % Plt Count 171 (150-450) K/mm3 MPV 10.3 (7.5-11.0) fl Gran % 87.8 H (36.0-66.0) % Eos # (Auto) 0 (0-0.5) Absolute Lymphs (auto) 0.85 L (1.0-4.6) Absolute Monos (auto) 1.47 H (0.0-1.3) Lymphocytes % 4.4 L (24.0-44.0) % Monocytes % 7.6 (0.0-12.0) % Eosinophils % 0.0 (0.00-5.0) % Basophils % 0.2 (0.0-0.4) % Absolute Granulocytes 17.04 H (1.4-6.9) Segmented Neutrophils (36.-66.) % Band Neutrophils (0.0-2.0) % Lymphocytes (Manual) (24-44) % Monocytes (Manual) (0.0-12.0) % Basophils # 0.03 (0-0.4) Toxic Granulation Platelet Estimate (NORMAL) RBC Morphology Anisocytosis PT 14.9 H (8.83-12.87) SECONDS INR 1.31 (0.8-3.0) APTT 27.2 (24.1-36.1) SECONDS Puncture Site pCO2 (35-45) mmHg pO2 (75-100) mmHg Base Excess (-2.0-2.0) O2 Saturation (94-100) g/dF ABG pH (7.35-7.45) ABG HCO3 (22-28) ABG O2 Sat (Measured) (95-100) % Ermias Test A-a Gradient a/A Ratio Hemoglobin Carboxyhemoglobin (0.0-6.9) % THgb Methemoglobin (1.4-1.5) % Temperature C POC O2 Flow Rate % Sodium 145 (137-145) mmol/L Potassium 4.2 (3.5-5.1) mmol/L Chloride 105 (98-107) mmol/L Carbon Dioxide 27 (22-30) mmol/L Anion Gap 16.7 H (5-15) MEQ/L BUN 39 H (9-20) mg/dL Creatinine 3.28 H (0.66-1.25) mg/dL Estimated GFR 19.4 ML/MIN Glucose 172 H (74-106) mg/dL Lactic Acid (0.4-2.0) Calcium 10.5 H (8.4-10.2) mg/dL Magnesium 1.7 (1.6-2.3) mg/dL Total Bilirubin 0.90 (0.2-1.3) mg/dL AST 143 H (17-59) U/L ALT 36 (0-50) U/L Alkaline Phosphatase 96 (38-126) U/L Troponin I (0.000-0.034) ng/mL Serum Total Protein 7.7 (6.3-8.2) g/dL Albumin 4.4 (3.5-5.0) g/dL Urine Color (YELLOW) Urine Appearance (CLEAR) Urine pH (5-6) Ur Specific Evans (1.005-1.025) Urine Protein (Negative) Urine Ketones (NEGATIVE) Urine Blood (0-5) Isai/ul Urine Nitrite (NEGATIVE) Urine Bilirubin (NEGATIVE) Urine Urobilinogen (0-1) mg/dL Ur Leukocyte Esterase (NEGATIVE) Urine WBC (Auto) (0-5) /HPF Urine RBC (Auto) (0-2) /HPF U Epithel Cells (Auto) (FEW) /HPF Urine Bacteria (Auto) (NEGATIVE) /HPF Urine Culture Reflexed (NO) Urine Glucose (NEGATIVE) mg/dL Influenza Type A Ag (NEGATIVE) Influenza Type B Ag (NEGATIVE) RSV (PCR) (Negative) Slides for Path Review YES 0410/21/19 10/21/19 Range/Units 11:35 11:35 11:56 WBC (4.0-10.5) K/mm3 RBC (4.1-5.6) M/mm3 Hgb (12.5-18.0) gm/dl Hct (42-50) % MCV (78-100) fl MCH (26-32) pg MCHC (32-36) g/dl RDW (11.5-14.0) % Plt Count (150-450) K/mm3 MPV (7.5-11.0) fl Gran % (36.0-66.0) % Eos # (Auto) (0-0.5) Absolute Lymphs (auto) (1.0-4.6) Absolute Monos (auto) (0.0-1.3) Lymphocytes % (24.0-44.0) % Monocytes % (0.0-12.0) % Eosinophils % (0.00-5.0) % Basophils % (0.0-0.4) % Absolute Granulocytes (1.4-6.9) Segmented Neutrophils (36.-66.) % Band Neutrophils (0.0-2.0) % Lymphocytes (Manual) (24-44) % Monocytes (Manual) (0.0-12.0) % Basophils # (0-0.4) Toxic Granulation Platelet Estimate (NORMAL) RBC Morphology Anisocytosis PT (8.83-12.87) SECONDS INR (0.8-3.0) APTT (24.1-36.1) SECONDS Puncture Site RIGHT RADIAL pCO2 33 L (35-45) mmHg pO2 73 L (75-100) mmHg Base Excess 1.6 (-2.0-2.0) O2 Saturation 94.9 (94-100) g/dF ABG pH 7.48 H (7.35-7.45) ABG HCO3 24.6 (22-28) ABG O2 Sat (Measured) 97.4 (95-100) % Ermias Test YES A-a Gradient 35 a/A Ratio 0.68 Hemoglobin 14.8 Carboxyhemoglobin 1.5 (0.0-6.9) % THgb Methemoglobin 1.1 L (1.4-1.5) % Temperature 37.0 C POC O2 Flow Rate 21 % Sodium (137-145) mmol/L Potassium 4.0 (3.5-5.1) mmol/L Chloride (98-107) mmol/L Carbon Dioxide (22-30) mmol/L Anion Gap (5-15) MEQ/L BUN (9-20) mg/dL Creatinine (0.66-1.25) mg/dL Estimated GFR ML/MIN Glucose (74-106) mg/dL Lactic Acid (0.4-2.0) Calcium (8.4-10.2) mg/dL Magnesium (1.6-2.3) mg/dL Total Bilirubin (0.2-1.3) mg/dL AST (17-59) U/L ALT (0-50) U/L Alkaline Phosphatase (38-126) U/L Troponin I 0.081 H* (0.000-0.034) ng/mL Serum Total Protein (6.3-8.2) g/dL Albumin (3.5-5.0) g/dL Urine Color (YELLOW) Urine Appearance (CLEAR) Urine pH (5-6) Ur Specific Evans (1.005-1.025) Urine Protein (Negative) Urine Ketones (NEGATIVE) Urine Blood (0-5) Isai/ul Urine Nitrite (NEGATIVE) Urine Bilirubin (NEGATIVE) Urine Urobilinogen (0-1) mg/dL Ur Leukocyte Esterase (NEGATIVE) Urine WBC (Auto) (0-5) /HPF Urine RBC (Auto) (0-2) /HPF U Epithel Cells (Auto) (FEW) /HPF Urine Bacteria (Auto) (NEGATIVE) /HPF Urine Culture Reflexed (NO) Urine Glucose (NEGATIVE) mg/dL Influenza Type A Ag NEGATIVE (NEGATIVE) Influenza Type B Ag NEGATIVE (NEGATIVE) RSV (PCR) NEGATIVE (Negative) Slides for Path Review 10/21/19 10/21/19 10/21/19 Range/Units 11:56 14:01 14:45 WBC (4.0-10.5) K/mm3 RBC (4.1-5.6) M/mm3 Hgb (12.5-18.0) gm/dl Hct (42-50) % MCV (78-100) fl MCH (26-32) pg MCHC (32-36) g/dl RDW (11.5-14.0) % Plt Count (150-450) K/mm3 MPV (7.5-11.0) fl Gran % (36.0-66.0) % Eos # (Auto) (0-0.5) Absolute Lymphs (auto) (1.0-4.6) Absolute Monos (auto) (0.0-1.3) Lymphocytes % (24.0-44.0) % Monocytes % (0.0-12.0) % Eosinophils % (0.00-5.0) % Basophils % (0.0-0.4) % Absolute Granulocytes (1.4-6.9) Segmented Neutrophils (36.-66.) % Band Neutrophils (0.0-2.0) % Lymphocytes (Manual) (24-44) % Monocytes (Manual) (0.0-12.0) % Basophils # (0-0.4) Toxic Granulation Platelet Estimate (NORMAL) RBC Morphology Anisocytosis PT (8.83-12.87) SECONDS INR (0.8-3.0) APTT (24.1-36.1) SECONDS Puncture Site pCO2 (35-45) mmHg pO2 (75-100) mmHg Base Excess (-2.0-2.0) O2 Saturation (94-100) g/dF ABG pH (7.35-7.45) ABG HCO3 (22-28) ABG O2 Sat (Measured) (95-100) % Ermias Test A-a Gradient a/A Ratio Hemoglobin Carboxyhemoglobin (0.0-6.9) % THgb Methemoglobin (1.4-1.5) % Temperature C POC O2 Flow Rate % Sodium (137-145) mmol/L Potassium (3.5-5.1) mmol/L Chloride (98-107) mmol/L Carbon Dioxide (22-30) mmol/L Anion Gap (5-15) MEQ/L BUN (9-20) mg/dL Creatinine (0.66-1.25) mg/dL Estimated GFR ML/MIN Glucose (74-106) mg/dL Lactic Acid 1.9 2.4 H (0.4-2.0) Calcium (8.4-10.2) mg/dL Magnesium (1.6-2.3) mg/dL Total Bilirubin (0.2-1.3) mg/dL AST (17-59) U/L ALT (0-50) U/L Alkaline Phosphatase (38-126) U/L Troponin I 0.068 H* (0.000-0.034) ng/mL Serum Total Protein (6.3-8.2) g/dL Albumin (3.5-5.0) g/dL Urine Color (YELLOW) Urine Appearance (CLEAR) Urine pH (5-6) Ur Specific Evans (1.005-1.025) Urine Protein (Negative) Urine Ketones (NEGATIVE) Urine Blood (0-5) Isai/ul Urine Nitrite (NEGATIVE) Urine Bilirubin (NEGATIVE) Urine Urobilinogen (0-1) mg/dL Ur Leukocyte Esterase (NEGATIVE) Urine WBC (Auto) (0-5) /HPF Urine RBC (Auto) (0-2) /HPF U Epithel Cells (Auto) (FEW) /HPF Urine Bacteria (Auto) (NEGATIVE) /HPF Urine Culture Reflexed (NO) Urine Glucose (NEGATIVE) mg/dL Influenza Type A Ag (NEGATIVE) Influenza Type B Ag (NEGATIVE) RSV (PCR) (Negative) Slides for Path Review 10/21/19 10/21/19 10/21/19 Range/Units 17:47 20:50 23:55 WBC (4.0-10.5) K/mm3 RBC (4.1-5.6) M/mm3 Hgb (12.5-18.0) gm/dl Hct (42-50) % MCV (78-100) fl MCH (26-32) pg MCHC (32-36) g/dl RDW (11.5-14.0) % Plt Count (150-450) K/mm3 MPV (7.5-11.0) fl Gran % (36.0-66.0) % Eos # (Auto) (0-0.5) Absolute Lymphs (auto) (1.0-4.6) Absolute Monos (auto) (0.0-1.3) Lymphocytes % (24.0-44.0) % Monocytes % (0.0-12.0) % Eosinophils % (0.00-5.0) % Basophils % (0.0-0.4) % Absolute Granulocytes (1.4-6.9) Segmented Neutrophils (36.-66.) % Band Neutrophils (0.0-2.0) % Lymphocytes (Manual) (24-44) % Monocytes (Manual) (0.0-12.0) % Basophils # (0-0.4) Toxic Granulation Platelet Estimate (NORMAL) RBC Morphology Anisocytosis PT (8.83-12.87) SECONDS INR (0.8-3.0) APTT (24.1-36.1) SECONDS Puncture Site pCO2 (35-45) mmHg pO2 (75-100) mmHg Base Excess (-2.0-2.0) O2 Saturation (94-100) g/dF ABG pH (7.35-7.45) ABG HCO3 (22-28) ABG O2 Sat (Measured) (95-100) % Ermias Test A-a Gradient a/A Ratio Hemoglobin Carboxyhemoglobin (0.0-6.9) % THgb Methemoglobin (1.4-1.5) % Temperature C POC O2 Flow Rate % Sodium (137-145) mmol/L Potassium (3.5-5.1) mmol/L Chloride (98-107) mmol/L Carbon Dioxide (22-30) mmol/L Anion Gap (5-15) MEQ/L BUN (9-20) mg/dL Creatinine (0.66-1.25) mg/dL Estimated GFR ML/MIN Glucose (74-106) mg/dL Lactic Acid (0.4-2.0) Calcium (8.4-10.2) mg/dL Magnesium (1.6-2.3) mg/dL Total Bilirubin (0.2-1.3) mg/dL AST (17-59) U/L ALT (0-50) U/L Alkaline Phosphatase (38-126) U/L Troponin I 0.096 H* 0.096 H* 0.092 H* (0.000-0.034) ng/mL Serum Total Protein (6.3-8.2) g/dL Albumin (3.5-5.0) g/dL Urine Color (YELLOW) Urine Appearance (CLEAR) Urine pH (5-6) Ur Specific Evans (1.005-1.025) Urine Protein (Negative) Urine Ketones (NEGATIVE) Urine Blood (0-5) Isai/ul Urine Nitrite (NEGATIVE) Urine Bilirubin (NEGATIVE) Urine Urobilinogen (0-1) mg/dL Ur Leukocyte Esterase (NEGATIVE) Urine WBC (Auto) (0-5) /HPF Urine RBC (Auto) (0-2) /HPF U Epithel Cells (Auto) (FEW) /HPF Urine Bacteria (Auto) (NEGATIVE) /HPF Urine Culture Reflexed (NO) Urine Glucose (NEGATIVE) mg/dL Influenza Type A Ag (NEGATIVE) Influenza Type B Ag (NEGATIVE) RSV (PCR) (Negative) Slides for Path Review 10/21/19 10/22/19 10/22/19 Range/Units Unknown 04:50 04:50 WBC 13.0 H (4.0-10.5) K/mm3 RBC 3.25 L (4.1-5.6) M/mm3 Hgb 10.3 L (12.5-18.0) gm/dl Hct 31.3 L (42-50) % MCV 96.3 (78-100) fl MCH 31.7 (26-32) pg MCHC 32.9 (32-36) g/dl RDW 13.7 (11.5-14.0) % Plt Count 133 L (150-450) K/mm3 MPV 10.4 (7.5-11.0) fl Gran % (36.0-66.0) % Eos # (Auto) (0-0.5) Absolute Lymphs (auto) (1.0-4.6) Absolute Monos (auto) (0.0-1.3) Lymphocytes % (24.0-44.0) % Monocytes % (0.0-12.0) % Eosinophils % (0.00-5.0) % Basophils % (0.0-0.4) % Absolute Granulocytes (1.4-6.9) Segmented Neutrophils 87 H (36.-66.) % Band Neutrophils 5 H (0.0-2.0) % Lymphocytes (Manual) 6 L (24-44) % Monocytes (Manual) 2 (0.0-12.0) % Basophils # (0-0.4) Toxic Granulation 2+ Platelet Estimate NORMAL (NORMAL) RBC Morphology ABNORMAL Anisocytosis 1+ PT (8.83-12.87) SECONDS INR (0.8-3.0) APTT (24.1-36.1) SECONDS Puncture Site pCO2 (35-45) mmHg pO2 (75-100) mmHg Base Excess (-2.0-2.0) O2 Saturation (94-100) g/dF ABG pH (7.35-7.45) ABG HCO3 (22-28) ABG O2 Sat (Measured) (95-100) % Ermias Test A-a Gradient a/A Ratio Hemoglobin Carboxyhemoglobin (0.0-6.9) % THgb Methemoglobin (1.4-1.5) % Temperature C POC O2 Flow Rate % Sodium 141 (137-145) mmol/L Potassium 3.7 (3.5-5.1) mmol/L Chloride 109 H (98-107) mmol/L Carbon Dioxide 22 (22-30) mmol/L Anion Gap 14.3 (5-15) MEQ/L BUN 45 H (9-20) mg/dL Creatinine 3.12 H (0.66-1.25) mg/dL Estimated GFR 20.6 ML/MIN Glucose 125 H (74-106) mg/dL Lactic Acid (0.4-2.0) Calcium 9.4 (8.4-10.2) mg/dL Magnesium (1.6-2.3) mg/dL Total Bilirubin 0.60 (0.2-1.3) mg/dL AST 121 H (17-59) U/L ALT 38 (0-50) U/L Alkaline Phosphatase 80 (38-126) U/L Troponin I 0.074 H* (0.000-0.034) ng/mL Serum Total Protein 6.3 (6.3-8.2) g/dL Albumin 3.3 L (3.5-5.0) g/dL Urine Color MIKE (YELLOW) Urine Appearance TURBID (CLEAR) Urine pH 5.0 (5-6) Ur Specific Evans 1.019 (1.005-1.025) Urine Protein 100 (Negative) Urine Ketones NEGATIVE (NEGATIVE) Urine Blood LARGE (0-5) Isai/ul Urine Nitrite NEGATIVE (NEGATIVE) Urine Bilirubin NEGATIVE (NEGATIVE) Urine Urobilinogen NEGATIVE (0-1) mg/dL Ur Leukocyte Esterase LARGE (NEGATIVE) Urine WBC (Auto) >100 (0-5) /HPF Urine RBC (Auto) 26-50 (0-2) /HPF U Epithel Cells (Auto) NONE (FEW) /HPF Urine Bacteria (Auto) MODERATE (NEGATIVE) /HPF Urine Culture Reflexed YES (NO) Urine Glucose NEGATIVE (NEGATIVE) mg/dL Influenza Type A Ag (NEGATIVE) Influenza Type B Ag (NEGATIVE) RSV (PCR) (Negative) Slides for Path Review 10/22/19 Range/Units 05:20 WBC (4.0-10.5) K/mm3 RBC (4.1-5.6) M/mm3 Hgb (12.5-18.0) gm/dl Hct (42-50) % MCV (78-100) fl MCH (26-32) pg MCHC (32-36) g/dl RDW (11.5-14.0) % Plt Count (150-450) K/mm3 MPV (7.5-11.0) fl Gran % (36.0-66.0) % Eos # (Auto) (0-0.5) Absolute Lymphs (auto) (1.0-4.6) Absolute Monos (auto) (0.0-1.3) Lymphocytes % (24.0-44.0) % Monocytes % (0.0-12.0) % Eosinophils % (0.00-5.0) % Basophils % (0.0-0.4) % Absolute Granulocytes (1.4-6.9) Segmented Neutrophils (36.-66.) % Band Neutrophils (0.0-2.0) % Lymphocytes (Manual) (24-44) % Monocytes (Manual) (0.0-12.0) % Basophils # (0-0.4) Toxic Granulation Platelet Estimate (NORMAL) RBC Morphology Anisocytosis PT (8.83-12.87) SECONDS INR (0.8-3.0) APTT (24.1-36.1) SECONDS Puncture Site pCO2 (35-45) mmHg pO2 (75-100) mmHg Base Excess (-2.0-2.0) O2 Saturation (94-100) g/dF ABG pH (7.35-7.45) ABG HCO3 (22-28) ABG O2 Sat (Measured) (95-100) % Ermias Test A-a Gradient a/A Ratio Hemoglobin Carboxyhemoglobin (0.0-6.9) % THgb Methemoglobin (1.4-1.5) % Temperature C POC O2 Flow Rate % Sodium (137-145) mmol/L Potassium (3.5-5.1) mmol/L Chloride (98-107) mmol/L Carbon Dioxide (22-30) mmol/L Anion Gap (5-15) MEQ/L BUN (9-20) mg/dL Creatinine (0.66-1.25) mg/dL Estimated GFR ML/MIN Glucose (74-106) mg/dL Lactic Acid 0.9 (0.4-2.0) Calcium (8.4-10.2) mg/dL Magnesium (1.6-2.3) mg/dL Total Bilirubin (0.2-1.3) mg/dL AST (17-59) U/L ALT (0-50) U/L Alkaline Phosphatase (38-126) U/L Troponin I (0.000-0.034) ng/mL Serum Total Protein (6.3-8.2) g/dL Albumin (3.5-5.0) g/dL Urine Color (YELLOW) Urine Appearance (CLEAR) Urine pH (5-6) Ur Specific Evans (1.005-1.025) Urine Protein (Negative) Urine Ketones (NEGATIVE) Urine Blood (0-5) Isai/ul Urine Nitrite (NEGATIVE) Urine Bilirubin (NEGATIVE) Urine Urobilinogen (0-1) mg/dL Ur Leukocyte Esterase (NEGATIVE) Urine WBC (Auto) (0-5) /HPF Urine RBC (Auto) (0-2) /HPF U Epithel Cells (Auto) (FEW) /HPF Urine Bacteria (Auto) (NEGATIVE) /HPF Urine Culture Reflexed (NO) Urine Glucose (NEGATIVE) mg/dL Influenza Type A Ag (NEGATIVE) Influenza Type B Ag (NEGATIVE) RSV (PCR) (Negative) Slides for Path Review Radiology Exams: Radiology Procedures Category Date Time Status CHEST 1 VIEW (PORTABLE) Stat Exams 10/21/19 11:21 Completed ELBOW (MINIMUM 3 VIEWS) Stat Exams 10/21/19 11:43 Completed Multi-Disciplinary Progress Notes: Multi-Disciplinary Progress Notes Assessment/Plan (1) Sepsis Current Visit: Yes Status: Acute Assessment & Plan: gram negative bacteria in blood and urine culture, currently on levaquin. he is hemodynamically stable with improvement in wbc and renal functional marginally improved, continue hydration. covid-19 swab pending. addendum: 10/22/19 19:25 patient now requiring 2L oxygen NC, has had some tachycardia and tachypnea but in the context of fever. he denies shortness of breath, he is resting comfortably in bed. has some minimal crackles in bases. reduce IVF rate, check chest xray and labs in am. (2) Acute renal injury Current Visit: Yes Status: Acute Code(s): N17.9 - ACUTE KIDNEY FAILURE, UNSPECIFIED (3) UTI (urinary tract infection) Current Visit: Yes Status: Acute Code(s): N39.0 - URINARY TRACT INFECTION, SITE NOT SPECIFIED
[2019-10-22] MEDS ORDERED: NON-FORMULARY ITEM (Aspirin [Aspirin] 81 MG) PO SCH (10:00)
[2019-10-22] MEDS ORDERED: ENOXAPARIN SODIUM SQ SCH (10:00)
[2019-10-22] MEDS: Flomax 0.4 MG PO SCH (10:18)
[2019-10-22] MEDS: ECOTRIN 81 MG PO SCH (10:18)
[2019-10-23] MEDS ORDERED: Toprol-Xl 25MG Tablets ONE (01:28)
[2019-10-23] MEDS ORDERED: ENOXAPARIN SODIUM SQ SCH ×2 (01:30→22:00)
[2019-10-23] MEDS: Toprol-Xl 25MG Tablets PO SCH ×2 (01:32→08:49)
[2019-10-23] MEDS: Sodium Chloride 0.9% 1000 ML 1,000 ML IV SCH ×3 (01:48→22:06)
[2019-10-23] MEDS: TYLENOL 325 MG PO PRN ×2 (03:32→13:10)
[2019-10-23 05:05] LABS: Hematocrit 30.2 % (42-50); Hemoglobin 9.9 gm/dl (12.5-18.0); Mean Cell Volume 95.9 fl (78-100); Mean Corpuscular Hemoglobin 31.4 pg (26-32); Mean Corpuscular Hgb Concent. 32.8 g/dl (32-36); Mean Platelet Volume 10.6 fl (7.5-11.0); Platelet Count 123 K/mm3 (150-450); Red Blood Count 3.15 M/mm3 (4.1-5.6); Red Cell Distribution Width 13.5 % (11.5-14.0); White Blood Count 8.9 K/mm3 (4.0-10.5)
[2019-10-23 06:04] LABS: ANION GAP 12.1 MEQ/L (5-15); Calcium 9.4 mg/dL (8.4-10.2); Creatinine 1 2.97 mg/dL (0.66-1.25); Potassium 3.9 mmol/L (3.5-5.1)
[2019-10-23 07:04] LABS: BAND 20 % (0.0-2.0); Lymphocytes 4 % (24-44); Monocyte 8 % (0.0-12.0); Neutrophils 68 % (36.-66.); Total Cells Counted 100
[2019-10-23 07:05] LABS: Hypochromia RARE; Platelet Estimate DECREASED (NORMAL)
[2019-10-23 07:06] LABS: ANISOCYTOSIS 1+; Absolute Neutrophil Ct (ANC) 7.79 (1.4-6.9)
--- NOTE | 2019-10-23 07:58 | PCM.NOTE ---
Date and Time: 10/23/19 0755 Subjective Assessment: patient denies complaints today, had some tachycardia overnight and was concern per nursing about a fib, received lovenox Objective Exam General Appearance: no apparent distress, alert Respiratory Exam: normal breath sounds, lungs clear, No respiratory distress Cardiovascular Exam: regular rate/rhythm, normal heart sounds Gastrointestinal/Abdomen Exam: soft, No tenderness, No mass Extremity Exam: normal inspection, normal range of motion OBJECTIVE DATA Vital Signs: Vital Signs - 24 hr Temp Pulse Resp BP Pulse Ox 10/23/19 06:55 97 10/23/19 04:05 101.8 F 116 H 25 H 137/65 97 10/23/19 00:35 97.0 F 107 H 22 135/67 97 10/22/19 20:00 101.1 F 128 H 22 119/67 95 10/22/19 19:52 94 L 10/22/19 17:46 96 10/22/19 17:04 101.1 F 10/22/19 14:45 99.6 F 103 H 10/22/19 13:11 102.3 F 10/22/19 11:43 100.5 F 124 H 21 158/72 90 L 10/22/19 08:00 98.7 F 92 H 24 98/65 94 L Oxygen-Last 24 hours Oxygen Flowrate (L/min)-RT 2 Pain Assessment - Last Documented Pain Intensity 0 Pain Scale Used FLACC Intake and Output: Intake & Output 10/20/19 10/21/19 10/22/19 10/23/19 11:59 11:59 11:59 11:59 Intake Total 720 3277 Output Total 250 700 Balance 470 2577 Weight 72.575 kg 64.6 kg Lab Results: Lab Results-Last 24 Hours 10/23/19 10/23/19 10/23/19 Range/Units 04:50 04:50 04:50 WBC 8.9 (4.0-10.5) K/mm3 RBC 3.15 L (4.1-5.6) M/mm3 Hgb 9.9 L (12.5-18.0) gm/dl Hct 30.2 L (42-50) % MCV 95.9 (78-100) fl MCH 31.4 (26-32) pg MCHC 32.8 (32-36) g/dl RDW 13.5 (11.5-14.0) % Plt Count 123 L (150-450) K/mm3 MPV 10.6 (7.5-11.0) fl Absolute Granulocytes 7.79 H (1.4-6.9) Segmented Neutrophils 68 H (36.-66.) % Band Neutrophils 20 H (0.0-2.0) % Lymphocytes (Manual) 4 L (24-44) % Monocytes (Manual) 8 (0.0-12.0) % Hypochromia RARE Platelet Estimate DECREASED (NORMAL) RBC Morphology ABNORMAL Anisocytosis 1+ Sodium 140 (137-145) mmol/L Potassium 3.9 (3.5-5.1) mmol/L Chloride 110 H (98-107) mmol/L Carbon Dioxide 22 (22-30) mmol/L Anion Gap 12.1 (5-15) MEQ/L BUN 42 H (9-20) mg/dL Creatinine 2.97 H (0.66-1.25) mg/dL Estimated GFR 21.8 ML/MIN Glucose 124 H (74-106) mg/dL Calcium 9.4 (8.4-10.2) mg/dL Troponin I 0.075 H* (0.000-0.034) ng/mL Radiology Exams: Radiology Procedures Category Date Time Status CHEST 1 VIEW (PORTABLE) Routine Exams 10/23/19 07:00 Ordered CHEST 1 VIEW (PORTABLE) Stat Exams 10/21/19 11:21 Completed ELBOW (MINIMUM 3 VIEWS) Stat Exams 10/21/19 11:43 Completed Multi-Disciplinary Progress Notes: Multi-Disciplinary Progress Notes 10/23/19 06:48 Pharmacy Note by Andrea De Luna Lovenox reduced to once daily dosing per renal dosing policy. Est CrCl is 18ml/ min. Initialized on 10/23/19 06:48 - END OF NOTE 10/22/19 11:50 Case Management Note by Lorena Naylor S/W WITH [facility]. THEY CAN ACCEPT PATIENT. NOTIFY THEM AT TIME OF DC AND NOTIFY THEM OF COVID-19 RESULTS AT THAT TIME. ALSO FAX DC INFO WITH DC MED LIST AND INSTRUCTIONS TO THEM AT THAT TIME. Initialized on 10/22/19 11:50 - END OF NOTE 10/22/19 10:23 Case Management Note by Lorena Naylor REFERRAL CALLED TO [facility] AT [facility]. SHE STATED THEY ARE STILL GOING IN HOMES TO SEE PATIENT. SHE WAS NOTIFIED THAT PATIENT HAS COVID-19 TEST PENDING-SHE VERIFIED UNDERSTANDING. REFERRAL PACKET WITH ORDER FAXED AT THIS TIME, CONFIRMATION RECEIVED. Initialized on 10/22/19 10:23 - END OF NOTE Assessment/Plan (1) Sepsis Current Visit: Yes Status: Acute Assessment & Plan: gram neg sepsis, e coli in blood culture. stop levaquin and start rocephin. has allergy, rash as child but no throat swelling or breathing trouble etc (2) Acute renal injury Current Visit: Yes Status: Acute Code(s): N17.9 - ACUTE KIDNEY FAILURE, UNSPECIFIED (3) UTI (urinary tract infection) Current Visit: Yes Status: Acute Code(s): N39.0 - URINARY TRACT INFECTION, SITE NOT SPECIFIED (4) Tachycardia Current Visit: Yes Status: Acute Assessment & Plan: appears sinus, go back to lovenox 30mg daily. check ekg Code(s): R00.0 - TACHYCARDIA, UNSPECIFIED
--- NOTE | 2019-10-23 08:31 | XRAY ---
Indication: Hypoxia. Comparison: October 21, 2019. Portable chest demonstrates new left costophrenic angle blunting favoring small effusion. Remaining heart and lungs normal.
[2019-10-23] MEDS: ECOTRIN 81 MG PO SCH (08:48)
[2019-10-23] MEDS: Flomax 0.4 MG PO SCH (08:48)
[2019-10-23] MEDS: ROCEPHIN 1 Gm-D5w 50 ml Bag** 1 G/50 ML IVPB IV SCH (08:49)
[2019-10-23] MEDS ORDERED: Levaquin 250MG/50ML D5W 250 MG/50 ML BAG IV SCH (10:00)
[2019-10-23] MEDS: ENOXAPARIN SODIUM SQ SCH (22:05)
[2019-10-24 06:39] LABS: Absolute Neutrophil Ct (ANC) 6.82 (1.4-6.9); BASOPHIL % 0.1 % (0.0-0.4); Basophil (Absolute #) 0.01 (0-0.4); Eosinophil % 0.7 % (0.00-5.0); Eosinophil (Absolute #) 0.06 (0-0.5); Hematocrit 28.9 % (42-50); Hemoglobin 9.5 gm/dl (12.5-18.0); Lymphocyte (Absolute #) 0.61 (1.0-4.6); Lymphocytes % 7.1 % (24.0-44.0); Mean Cell Volume 95.1 fl (78-100); Mean Corpuscular Hemoglobin 31.3 pg (26-32); Mean Corpuscular Hgb Concent. 32.9 g/dl (32-36); Mean Platelet Volume 11.3 fl (7.5-11.0); Monocyte (Absolute #) 1.04 (0.0-1.3); Monocytes % 12.2 % (0.0-12.0); Neutrophil % 79.9 % (36.0-66.0); Platelet Count 131 K/mm3 (150-450); Red Blood Count 3.04 M/mm3 (4.1-5.6); Red Cell Distribution Width 13.6 % (11.5-14.0); White Blood Count 8.5 K/mm3 (4.0-10.5)
[2019-10-24 06:54] LABS: ANION GAP 11.5 MEQ/L (5-15); Calcium 9.8 mg/dL (8.4-10.2); Creatinine 1 3.02 mg/dL (0.66-1.25); Potassium 3.7 mmol/L (3.5-5.1)
[2019-10-24] MEDS: Sodium Chloride 0.9% 1000 ML 1,000 ML IV SCH ×2 (08:57→23:30)
[2019-10-24] MEDS: ROCEPHIN 1 Gm-D5w 50 ml Bag** 1 G/50 ML IVPB IV SCH (08:58)
[2019-10-24] MEDS: ECOTRIN 81 MG PO SCH (08:58)
[2019-10-24] MEDS: Toprol-Xl 25MG Tablets PO SCH (08:58)
[2019-10-24] MEDS: Flomax 0.4 MG PO SCH (08:59)
--- NOTE | 2019-10-24 10:09 | PCM.NOTE ---
Date and Time: 10/24/19 1007 Subjective Assessment: patient reports he is feeling better, strength is improved. he denies any cough or shortness of breath. Objective Exam General Appearance: no apparent distress, alert Neurologic Exam: alert, oriented x 3, cooperative, normal mood/affect, nml cerebellar function, sensation nml, No motor deficits Skin Exam: normal color, warm, dry Respiratory Exam: normal breath sounds, lungs clear, No respiratory distress Cardiovascular Exam: regular rate/rhythm, normal heart sounds Gastrointestinal/Abdomen Exam: soft, No tenderness, No mass OBJECTIVE DATA Vital Signs: Vital Signs - 24 hr Temp Pulse Resp BP Pulse Ox 10/24/19 09:05 96 10/24/19 07:00 98.0 F 89 18 141/79 97 10/24/19 03:19 98.0 F 101 H 22 142/83 95 10/23/19 23:00 98.2 F 98 H 18 139/74 100 10/23/19 20:22 97 10/23/19 19:29 97.6 F 86 18 101/65 97 10/23/19 15:57 98.4 F 92 H 16 112/72 94 L 10/23/19 14:45 95 10/23/19 12:37 98.6 F 105 H 20 146/72 93 L Pain Assessment - Last Documented Pain Intensity 0 Pain Scale Used 0-10 Pain Scale Intake and Output: Intake & Output 10/21/19 10/22/19 10/23/19 10/24/19 11:59 11:59 11:59 11:59 Intake Total 720 3517 3159 Output Total 250 1200 725 Balance 470 2317 2434 Weight 72.575 kg 64.6 kg 64.6 kg Lab Results: Lab Results-Last 24 Hours 10/21/19 10/24/19 10/24/19 Range/Units 12:30 05:40 05:40 WBC 8.5 (4.0-10.5) K/mm3 RBC 3.04 L (4.1-5.6) M/mm3 Hgb 9.5 L (12.5-18.0) gm/dl Hct 28.9 L (42-50) % MCV 95.1 (78-100) fl MCH 31.3 (26-32) pg MCHC 32.9 (32-36) g/dl RDW 13.6 (11.5-14.0) % Plt Count 131 L (150-450) K/mm3 MPV 11.3 H (7.5-11.0) fl Gran % 79.9 H (36.0-66.0) % Eos # (Auto) 0.06 (0-0.5) Absolute Lymphs (auto) 0.61 L (1.0-4.6) Absolute Monos (auto) 1.04 (0.0-1.3) Lymphocytes % 7.1 L (24.0-44.0) % Monocytes % 12.2 H (0.0-12.0) % Eosinophils % 0.7 (0.00-5.0) % Basophils % 0.1 (0.0-0.4) % Absolute Granulocytes 6.82 (1.4-6.9) Basophils # 0.01 (0-0.4) Sodium 142 (137-145) mmol/L Potassium 3.7 (3.5-5.1) mmol/L Chloride 112 H (98-107) mmol/L Carbon Dioxide 23 (22-30) mmol/L Anion Gap 11.5 (5-15) MEQ/L BUN 39 H (9-20) mg/dL Creatinine 3.02 H (0.66-1.25) mg/dL Estimated GFR 21.3 ML/MIN Glucose 112 H (74-106) mg/dL Calcium 9.8 (8.4-10.2) mg/dL COVID-19 ([facility]) SEE SEPARATE REPORT Radiology Exams: Radiology Procedures Category Date Time Status CHEST 1 VIEW (PORTABLE) Routine Exams 10/23/19 07:00 Completed Multi-Disciplinary Progress Notes: Multi-Disciplinary Progress Notes 10/23/19 10:28 Case Management Note by Lorena Naylor S/W PATIENT VIA PHONE- HE REPORTS HE CONTINUES TO PLAN TO RETURN HOME AT TIME OF DC. HE LIVES ALONE BUT HAS A NEIGHBOR THAT CHECKS ON HIM. [facility] HAS BEEN SET UP. THEY WILL NEED NOTIFIED OF DC AT THAT TIME. Initialized on 10/23/19 10:28 - END OF NOTE Assessment/Plan (1) Sepsis Current Visit: Yes Status: Acute (2) Acute renal injury Current Visit: Yes Status: Acute Assessment & Plan: has chronic underlying renal dysfunction and per records sees Dr Peter, will consult now that covid status is negative for acute on chronic renal injury Code(s): N17.9 - ACUTE KIDNEY FAILURE, UNSPECIFIED (3) UTI (urinary tract infection) Current Visit: Yes Status: Acute Assessment & Plan: continue rocephin based on culture with bacteremia Code(s): N39.0 - URINARY TRACT INFECTION, SITE NOT SPECIFIED (4) Tachycardia Current Visit: Yes Status: Acute Code(s): R00.0 - TACHYCARDIA, UNSPECIFIED
[2019-10-24] MEDS: ENOXAPARIN SODIUM SQ SCH (21:46)
[2019-10-25 05:58] LABS: Absolute Neutrophil Ct (ANC) 7.34 (1.4-6.9); BASOPHIL % 0.2 % (0.0-0.4); Basophil (Absolute #) 0.02 (0-0.4); Eosinophil (Absolute #) 0.19 (0-0.5); Hematocrit 30.7 % (42-50); Hemoglobin 9.9 gm/dl (12.5-18.0); Lymphocyte (Absolute #) 0.79 (1.0-4.6); Lymphocytes % 8.3 % (24.0-44.0); Mean Cell Volume 95.3 fl (78-100); Mean Corpuscular Hemoglobin 30.7 pg (26-32); Mean Corpuscular Hgb Concent. 32.2 g/dl (32-36); Mean Platelet Volume 10.6 fl (7.5-11.0); Monocyte (Absolute #) 1.23 (0.0-1.3); Monocytes % 12.9 % (0.0-12.0); Neutrophil % 76.6 % (36.0-66.0); Platelet Count 143 K/mm3 (150-450); Red Blood Count 3.22 M/mm3 (4.1-5.6); White Blood Count 9.6 K/mm3 (4.0-10.5)
[2019-10-25 06:11] LABS: Calcium 10.2 mg/dL (8.4-10.2); Creatinine 1 2.52 mg/dL (0.66-1.25); Potassium 3.6 mmol/L (3.5-5.1)
--- NOTE | 2019-10-25 08:33 | PCM.NOTE ---
Date and Time: 10/25/19830 Subjective Assessment: patient reports he has been up ambulating in the halls, his strength is improved. tolerating po intake, no fever Objective Exam General Appearance: no apparent distress, alert Neurologic Exam: alert, oriented x 3, cooperative, normal mood/affect, nml cerebellar function, sensation nml, No motor deficits Skin Exam: normal color, warm, dry Respiratory Exam: normal breath sounds, lungs clear, No respiratory distress Cardiovascular Exam: regular rate/rhythm, normal heart sounds Gastrointestinal/Abdomen Exam: soft, No tenderness, No mass OBJECTIVE DATA Vital Signs: Vital Signs - 24 hr Temp Pulse Resp BP Pulse Ox 10/25/19 07:42 98.1 F 89 23 130/79 92 L 10/25/19 04:00 98.1 F 94 H 17 143/78 94 L 10/24/19 23:36 98.0 F 91 H 17 136/75 94 L 10/24/19 20:02 92 L 10/24/19 19:51 99.1 F 94 H 18 151/78 94 L 10/24/19 16:00 97.8 F 93 H 20 153/77 96 10/24/19 11:51 97.6 F 78 18 124/65 96 10/24/19 09:05 96 Pain Assessment - Last Documented Pain Intensity 0 Pain Scale Used 0-10 Pain Scale Intake and Output: Intake & Output 10/22/19 10/23/19 10/24/19 10/25/19 11:59 11:59 11:59 11:59 Intake Total 720 6317 3159 2446 Output Total 250 4505 655 9313 Balance 470 2317 2334 1246 Weight 64.6 kg 64.6 kg Lab Results: Lab Results-Last 24 Hours 10/25/19 10/25/19 Range/Units 05:30 05:30 WBC 9.6 (4.0-10.5) K/mm3 RBC 3.22 L (4.1-5.6) M/mm3 Hgb 9.9 L (12.5-18.0) gm/dl Hct 30.7 L (42-50) % MCV 95.3 (78-100) fl MCH 30.7 (26-32) pg MCHC 32.2 (32-36) g/dl RDW 14.0 (11.5-14.0) % Plt Count 143 L (150-450) K/mm3 MPV 10.6 (7.5-11.0) fl Gran % 76.6 H (36.0-66.0) % Eos # (Auto) 0.19 (0-0.5) Absolute Lymphs (auto) 0.79 L (1.0-4.6) Absolute Monos (auto) 1.23 (0.0-1.3) Lymphocytes % 8.3 L (24.0-44.0) % Monocytes % 12.9 H (0.0-12.0) % Eosinophils % 2.0 (0.00-5.0) % Basophils % 0.2 (0.0-0.4) % Absolute Granulocytes 7.34 H (1.4-6.9) Basophils # 0.02 (0-0.4) Sodium 143 (137-145) mmol/L Potassium 3.6 (3.5-5.1) mmol/L Chloride 111 H (98-107) mmol/L Carbon Dioxide 24 (22-30) mmol/L Anion Gap 11.0 (5-15) MEQ/L BUN 37 H (9-20) mg/dL Creatinine 2.52 H (0.66-1.25) mg/dL Estimated GFR 26.3 ML/MIN Glucose 117 H (74-106) mg/dL Calcium 10.2 (8.4-10.2) mg/dL Assessment/Plan (1) Sepsis Current Visit: Yes Status: Acute Assessment & Plan: gram negative sepsis with acute renal failure, doing well (2) Acute renal injury Current Visit: Yes Status: Acute Assessment & Plan: improving, Dr Peter consulted for 10/25, 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 Code(s): N17.9 - ACUTE KIDNEY FAILURE, UNSPECIFIED (3) UTI (urinary tract infection) Current Visit: Yes Status: Acute Assessment & Plan: on rocephin, e coli sens Code(s): N39.0 - URINARY TRACT INFECTION, SITE NOT SPECIFIED (4) Tachycardia Current Visit: Yes Status: Acute Code(s): R00.0 - TACHYCARDIA, UNSPECIFIED
[2019-10-25] MEDS: Toprol-Xl 25MG Tablets PO SCH (09:46)
[2019-10-25] MEDS: Flomax 0.4 MG PO SCH (09:46)
[2019-10-25] MEDS: ROCEPHIN 1 Gm-D5w 50 ml Bag** 1 G/50 ML IVPB IV SCH (09:49)
[2019-10-25] MEDS: ECOTRIN 81 MG PO SCH (09:50)
[2019-10-25] MEDS: Sodium Chloride 0.9% 1000 ML 1,000 ML IV SCH (13:11)
[2019-10-25] MEDS: ENOXAPARIN SODIUM SQ SCH (20:19)
[2019-10-26] MEDS: Sodium Chloride 0.9% 1000 ML 1,000 ML IV SCH (02:34)
[2019-10-26 05:30] LABS: Hematocrit 29.6 % (42-50); Hemoglobin 9.7 gm/dl (12.5-18.0); Mean Cell Volume 94.6 fl (78-100); Mean Corpuscular Hgb Concent. 32.8 g/dl (32-36); Mean Platelet Volume 10.8 fl (7.5-11.0); Platelet Count 153 K/mm3 (150-450); Red Blood Count 3.13 M/mm3 (4.1-5.6); Red Cell Distribution Width 13.8 % (11.5-14.0); White Blood Count 10.5 K/mm3 (4.0-10.5)
[2019-10-26 05:36] LABS: ANION GAP 11.2 MEQ/L (5-15); Calcium 9.9 mg/dL (8.4-10.2); Creatinine 1 2.17 mg/dL (0.66-1.25); Potassium 3.4 mmol/L (3.5-5.1)
[2019-10-26] MEDS: TYLENOL 325 MG PO PRN (06:38)
[2019-10-26 09:17] LABS: BAND 6 % (0.0-2.0); Eosinophil 4 % (0.00-3.0); Lymphocytes 11 % (24-44); Monocyte 7 % (0.0-12.0); Neutrophils 72 % (36.-66.); Platelet Estimate NORMAL (NORMAL); Total Cells Counted 100; Toxic Granulation 2+
[2019-10-26] MEDS: ROCEPHIN 1 Gm-D5w 50 ml Bag** 1 G/50 ML IVPB IV SCH (09:48)
[2019-10-26] MEDS: Flomax 0.4 MG PO SCH (09:49)
[2019-10-26] MEDS: Toprol-Xl 25MG Tablets PO SCH (09:49)
[2019-10-26] MEDS: ECOTRIN 81 MG PO SCH (09:53)
[2019-10-26 18:20] LABS: Appearance CLEAR (CLEAR); Bacteria FEW /HPF (NEGATIVE); Bilirubin NEGATIVE (NEGATIVE); Blood MODERATE Ery/ul (0-5); Glucose NEGATIVE (NEGATIVE); Ketones NEGATIVE (NEGATIVE); Leukocyte Esterase LARGE (NEGATIVE); Nitrite NEGATIVE (NEGATIVE); Protein,Urine Dip 30 (Negative); Specific Gravity 1.011 (1.005-1.025); Urobilinogen NEGATIVE mg/dL (0-1); WBC 51-100 /HPF (0-5)
[2019-10-26] MEDS: ENOXAPARIN SODIUM SQ SCH (22:26)
--- NOTE | 2019-10-26 23:56 | PCM.NOTE ---
Date and Time: 10/26/19 7798 Patient states he is feeling good,much stronger and appreciates the PT. Appetite is good. Objective Exam Neurologic Exam: alert, oriented x 3, cooperative Skin Exam: normal color, warm, dry Respiratory Exam: normal breath sounds, lungs clear Cardiovascular Exam: regular rate/rhythm Gastrointestinal/Abdomen Exam: soft, normal bowel sounds (nontender no CVA tenderness) Extremity Exam: normal inspection OBJECTIVE DATA Vital Signs: Vital Signs - 24 hr Temp Pulse Resp BP Pulse Ox 10/26/19 19:33 97.5 F 95 H 20 138/69 98 10/26/19 19:13 97 10/26/19 16:00 97.9 F 102 H 18 114/62 96 10/26/19 12:00 98.2 F 80 18 138/72 97 10/26/19 08:00 98.1 F 103 H 22 113/69 95 10/26/19 04:00 97.7 F 94 H 19 153/81 94 L 10/26/19 00:00 98.2 F 83 19 95 Pain Assessment - Last Documented Pain Intensity 0 Pain Scale Used 0-10 Pain Scale Intake and Output: Intake & Output 10/24/19 10/25/19 10/26/19 10/27/19 11:59 11:59 11:59 11:59 Intake Total 3159 2446 4533 1724 Output Total 825 1200 2650 500 Balance 2334 1246 1883 1224 Lab Results: Lab Results-Last 24 Hours 10/26/19 10/26/19 10/26/19 Range/Units 05:00 05:00 18:00 WBC 10.5 (4.0-10.5) K/mm3 RBC 3.13 L (4.1-5.6) M/mm3 Hgb 9.7 L (12.5-18.0) gm/dl Hct 29.6 L (42-50) % MCV 94.6 (78-100) fl MCH 31.0 (26-32) pg MCHC 32.8 (32-36) g/dl RDW 13.8 (11.5-14.0) % Plt Count 153 (150-450) K/mm3 MPV 10.8 (7.5-11.0) fl Segmented Neutrophils 72 H (36.-66.) % Band Neutrophils 6 H (0.0-2.0) % Lymphocytes (Manual) 11 L (24-44) % Monocytes (Manual) 7 (0.0-12.0) % Eosinophils (Manual) 4 H (0.00-3.0) % Toxic Granulation 2+ Platelet Estimate NORMAL (NORMAL) RBC Morphology NORMAL Sodium 142 (137-145) mmol/L Potassium 3.4 L (3.5-5.1) mmol/L Chloride 110 H (98-107) mmol/L Carbon Dioxide 24 (22-30) mmol/L Anion Gap 11.2 (5-15) MEQ/L BUN 31 H (9-20) mg/dL Creatinine 2.17 H (0.66-1.25) mg/dL Estimated GFR 31.3 ML/MIN Glucose 112 H (74-106) mg/dL Calcium 9.9 (8.4-10.2) mg/dL Urine Color YELLOW (YELLOW) Urine Appearance CLEAR (CLEAR) Urine pH 5.0 (5-6) Ur Specific [place] 1.011 (1.005-1.025) Urine Protein 30 (Negative) Urine Ketones NEGATIVE (NEGATIVE) Urine Blood MODERATE (0-5) Isai/ul Urine Nitrite NEGATIVE (NEGATIVE) Urine Bilirubin NEGATIVE (NEGATIVE) Urine Urobilinogen NEGATIVE (0-1) mg/dL Ur Leukocyte Esterase LARGE (NEGATIVE) Urine WBC (Auto) 51-100 (0-5) /HPF Urine RBC (Auto) 3-5 (0-2) /HPF U Epithel Cells (Auto) NONE (FEW) /HPF Urine Bacteria (Auto) FEW (NEGATIVE) /HPF Urine Culture Reflexed YES (NO) Urine Glucose NEGATIVE (NEGATIVE) mg/dL Multi-Disciplinary Progress Notes: Multi-Disciplinary Progress Notes 10/26/19 14:54 Physical Therapy Note by Nohemi Maldonado PT. WAS SEEN THIS P.M. WAS IN BED UPON P.T. ARRIVAL TO ROOM BUT AGREEABLE TO RX. PERFORMED SUPINE TO SIT W/ CGA-MIN ASSIST. SIT TO STAND SBA. PERFORMED COMMODE TRANSFER AND HYGIENE W/ SBA WITHOUT UNSTEADINESS. PT. RODED SEATED STEPPER X 5 MIN AND PERFORMED LE STRENGTHENING EX'S IN SUPINE OF ANKLE PUMPS, SLRS, BRIDGING, HEEL SLIDES, AND QUAD SETS X 10 REPS. PERFORMED SUPINE TO SIT ON MAT W/ SBA. PT. PERFORMED STANDING SQUATS AND CALF RAISES X 10 REPS W/ UE SUPPORT. O2 SATS WERE 97% ON RA DURING EXERCISE. PT. IS NOT INTERESTED IN OBTAINING A WALKER FOR HOME USE. DOES HAVE CANES AT HOME. WALKED ~ 40' W/ STC W/ V.C. FOR PLACEMENT AND FEEL PT. IS SAFER WITHOUT A.D. AT THIS TIME VS W/ CANE HE HAD SOME DIFFICULTY COORDINATING HIS LE GAIT PATTERN W/ USE OF THE CANE. WILL CONT. P.T. 5X/WK DURING STAY TO MAXIMIZE FUNCTIONAL INDEPENDENCE FOR SAFE RETURN HOME. NOHEMI MALDONADO, PT Initialized on 10/26/19 14:54 - END OF NOTE 10/26/19 09:59 Case Management Note by Lorena Naylor S/W PATIENT- HE PLANS TO RETURN HOME AT TIME OF DC. PATIENT LIVES ALONE AND HAS A NEIGHBOR TO HELP HIM NEEDED. HE NORMALLY MANAGES HIS OWN MEDICATIONS. HE PROVIDES HIS OWN TRANSPORTATION BUT HAS OTHERS THAT CAN HELP HIM IF NEEDED. PATIENT IS SET UP WITH [facility]. PT TO SEE PATIENT TODAY. WILL CONTINUE TO MONITOR BUT DO NOT ANTICIPATE ANY OTHER NEW NEEDS AT THIS TIME Initialized on 10/26/19 09:59 - END OF NOTE 10/26/19 09:52 Case Management Note by Lorena Naylor PT EVAL ENTERED FOR PATIENT D/T ELDERLY AND LIVES ALONE. NOTED TO HAVE WEAKNESS UPON ARRIVAL Initialized on 10/26/19 09:52 - END OF NOTE Assessment/Plan (1) Dehydration Current Visit: Yes Status: Resolved Assessment & Plan: home tomorrow if no set backs Code(s): E86.0 - DEHYDRATION (2) Sepsis Current Visit: Yes Status: Resolved Qualifiers: Sepsis type: Escherichia coli Assessment & Plan: IV Ceftriaxone series (3) UTI (urinary tract infection) Current Visit: Yes Status: Resolved Assessment & Plan: E.Coli , Tx with Ceftriaxone series IV Code(s): N39.0 - URINARY TRACT INFECTION, SITE NOT SPECIFIED
[2019-10-27] MEDS: Sodium Chloride 0.9% 1000 ML 1,000 ML IV SCH (06:25)
[2019-10-27] MEDS: Toprol-Xl 25MG Tablets PO SCH (08:41)
[2019-10-27] MEDS: ECOTRIN 81 MG PO SCH (08:41)
[2019-10-27] MEDS: ROCEPHIN 1 Gm-D5w 50 ml Bag** 1 G/50 ML IVPB IV SCH (08:41)
[2019-10-27] MEDS: Flomax 0.4 MG PO SCH (08:41)
[2019-10-27 12:09] VITALS: BP 111/65; PULSE 81; O2SAT 97
--- NOTE | 2019-10-27 12:36 | PCM.DS ---
Discharge Summary Date of Admission: 10/21/19 13:20 Admitting Physician: MICHEL DALEY Consults: Consults on Case 10/24/19 10:09 Consult Nephrology ROUTINE Primary Care Provider: AYANNA FARR Allergies Allergies Penicillins Allergy (Verified 10/21/19 12:09) Sulfa (Sulfonamide Antibiotics) Allergy (Verified 10/21/19 12:09) Hospital Summary - Hospital Course Hospital Course: Patient was admitted through ER after falling out of his chair at home and hitting his elbow but no head trauma. He c/o shivering for a day prior and was admitted with probable urosepsis which was confirmed to be Ecoli in blood and urine and sens to Rocephin.He completed a 7 day course of IV Rocephin and is back to baseline walking at a rapid steady pace in the halls with PT. He will be discharged home with care. - Vitals & Intake/Output Vital Signs: Vital Signs Temperature 97.5 F 10/27/19 12:00 Pulse Rate 81 10/27/19 12:00 Respiratory Rate 14 10/27/19 12:00 Blood Pressure 111/65 10/27/19 12:00 O2 Sat by Pulse Oximetry 97 10/27/19 12:00 Intake & Output: Intake & Output 10/25/19 10/26/19 10/27/19 10/28/19 11:59 11:59 11:59 11:59 Intake Total 2446 4533 2703 Output Total 1200 2650 1500 Balance 1246 1883 1203 - Lab Result Diagrams: 10/26/19 05:00 10/26/19 05:00 Lab Results-Last 24 Hrs: Lab Results-Last 24 Hours 10/26/19 Range/Units 18:00 Urine Color YELLOW (YELLOW) Urine Appearance CLEAR (CLEAR) Urine pH 5.0 (5-6) Ur Specific [place] 1.011 (1.005-1.025) Urine Protein 30 (Negative) Urine Ketones NEGATIVE (NEGATIVE) Urine Blood MODERATE (0-5) Isai/ul Urine Nitrite NEGATIVE (NEGATIVE) Urine Bilirubin NEGATIVE (NEGATIVE) Urine Urobilinogen NEGATIVE (0-1) mg/dL Ur Leukocyte Esterase LARGE (NEGATIVE) Urine WBC (Auto) 51-100 (0-5) /HPF Urine RBC (Auto) 3-5 (0-2) /HPF U Epithel Cells (Auto) NONE (FEW) /HPF Urine Bacteria (Auto) FEW (NEGATIVE) /HPF Urine Culture Reflexed YES (NO) Urine Glucose NEGATIVE (NEGATIVE) mg/dL Micro Results-Entire Visit: Microbiology 10/26/19 18:00 Urine Culture - Preliminary Urine, Void NO GROWTH TO DATE 10/21/19 11:35 Blood Culture Gram Stain - Final Blood Blood Culture - Final Escherichia Coli 10/21/19 Unknown Urine Culture - Final Urine, Void Escherichia Coli - Procedures and Test Procedures and Tests throughout Hospitalization: Therapy Orders & Screens 10/21/19 15:36 PT Screen per Nursing Assess ONCE Comment: Protocol Order Physician Instructions: Greater than 3 points order PT Admission Screenin Reason For Exam: Triggered on Admission Diagnosis: Urosepsis. Dehydraiton. Actue Renal. Injury. Leukocytosis. Suspect Covid. Open Wound/Cellutlitis/Pressure Ulcers: Yes Acute Fx/ORIF/Change in wt bearing status: No Severe MUSCULOSKELETAL pain: No ADL Dysfunction: No Acute CVA w/Hemiparesis/Hemiplegia: No Decreased Functional Mobility/Strength: Yes Sprain/Strain: No Acute Post-op Mobility Dysfunction: No Total Points: 6 10/22/19 17:46 Oxygen NASAL CANNULA 2 lpm Comment: Diagnosis: Urosepsis. Dehydraiton. Actue Renal. Injury. Leukocytosis. Suspect Covid. 10/23/19 07:57 EKG ROUTINE Comment: Diagnosis: Urosepsis. Dehydraiton. Actue Renal. Injury. Leukocytosis. Suspect Covid. 10/26/19 09:51 PT Eval & Treat (MD Order) ROUTINE Reason for Eval:: WEAKNESS Diagnosis: Urosepsis. Dehydraiton. Actue Renal. Injury. Leukocytosis. Suspect Covid. Discharge Exam Neurologic Exam: alert, oriented x 3, cooperative Respiratory Exam: normal breath sounds, lungs clear Cardiovascular Exam: regular rate/rhythm Gastrointestinal/Abdomen Exam: soft, normal bowel sounds (nontender) Extremity Exam: normal inspection Skin Exam: normal color, warm, dry Final Diagnosis/Problem List - Final Discharge Diagnosis/Problem (1) Dehydration Current Visit: Yes Status: Resolved Code(s): E86.0 - DEHYDRATION (2) Sepsis Current Visit: Yes Status: Resolved (3) UTI (urinary tract infection) Current Visit: Yes Status: Resolved Assessment & Plan: Dr Peter will consult,patient will follow up with his PCP Code(s): N39.0 - URINARY TRACT INFECTION, SITE NOT SPECIFIED - Discharge Disposition: Home, Self-Care Condition: Stable Prescriptions: Continue Aspirin 81 mg PO DAILY Ferrous Sulfate 325 mg PO DAILY Ascorbic Acid 500 mg [Vitamin C 500 MG] 500 mg PO DAILY Iron 18 mg PO DAILY Tamsulosin HCl 0.4 mg [Flomax 0.4 MG] 0.4 mg PO DAILY Calcium [Natural Calcium] 500 mg PO DAILY Lovastatin 40 mg PO DAILY Metoprolol Succinate 25 mg PO DAILY Cinacalcet HCl 60 mg PO DAILY Meloxicam 7.5 mg [Mobic 7.5 MG] 7.5 mg PO DAILY Additional Instructions: [facility] WILL FOLLOW UP WITH YOUR AFTER DISCHARGE. THEIR PHONE NUMBER IS [phone]. Follow up with: AYANNA FARR [Primary Care Provider] - 11/06/19 10:15 am
== END 2019-10-27 14:30 | disposition home health service (06) | DRG 640 ==
LOC: ED 11:09 → MED SURG 13:20
PROVIDERS: ADMIT Family Medicine; ATTEND Family Medicine
DX: E86.0 Dehydration (principal); A41.51 Sepsis due to Escherichia coli [E. coli]; N39.0 Urinary tract infection, site not specified; N17.9 Acute kidney failure, unspecified; D72.829 Elevated white blood cell count, unspecified; R42 Dizziness and giddiness; R79.89 Other specified abnormal findings of blood chemistry; R53.1 Weakness; R06.82 Tachypnea, not elsewhere classified; R41.0 Disorientation, unspecified; S80.212A Abrasion, left knee, initial encounter; S80.211A Abrasion, right knee, initial encounter; R00.0 Tachycardia, unspecified; S50.02XA Contusion of left elbow, initial encounter; Z79.899 Other long term (current) drug therapy; W07.XXXA Fall from chair, initial encounter; Y92.009 Unspecified place in unspecified non-institutional (private) residence as the place of occurrence of the external cause; R05 Cough
CPT/HCPCS: 36415; 71045; 73080; 80048; 80053; 81001; 82375; 82803; 83605; 83735; 84484; 85025; 85610; 85730; 87040; 87077; 87086; 87186; 87631; 93005; 93041; 94760; 94762; 96365; 97110; 97161; 99291; 99292; U0001; 36000; 36600; 99284; J0696; J1650; J1956; U0002; A9270-GY

== ENCOUNTER 2020-01-01 19:53 | Emergency (ER) | payer MEDICARE ==
[2020-01-01 20:09] VITALS: O2SAT 99
[2020-01-01] MEDS ORDERED: TYLENOL EXTRA STRENGTH 500 MG PO STA (20:12)
[2020-01-01] MEDS ORDERED: MOTRIN 600 MG PO ONE (20:12)
[2020-01-01] MEDS ORDERED: MOTRIN 600 MG ONE (20:17)
[2020-01-01] MEDS ORDERED: TYLENOL EXTRA STRENGTH 500 MG ONE (20:17)
--- NOTE | 2020-01-01 20:21 | ERPHSYRPT ---
- History of Present Illness Time Seen by Provider: 01/01/20 19:59 Source: patient Exam Limitations: no limitations Physician History: Patient is here with left hip pain. Patient states that 2 days ago he had a "almost fall". Patient states his foot got stuck while he was turning to do laundry. He felt a sharp "twinge in his hip". States that he had some pain there. He did not fall he did not hit his head. He has no dizziness, chest pain, shortness of breath, nausea, vomiting. Described only left outer hip pain. States he is not have any difficulty walking. Although he is ambulating slightly less due to the hip strain. No difficulty urinating. No red flag symptoms for back pain tonight. Location: left hip Quality: sharp Radiation: into pelvis Severity: moderate Duration: 2 days ago Timing: after injury Modifying factors/associated signs and symptoms: none tried Timing/Duration: day(s) (2 days) Severity: moderate Modifying Factors: Improves With: movement, rest Associated Symptoms: No nausea, No vomiting, No abdominal pain Allergies/Adverse Reactions: Sulfa (Sulfonamide Antibiotics) Allergy (Intermediate, Verified 01/01/20 20:17) Rash Penicillins Allergy (Mild, Verified 01/01/20 20:17) Rash Home Medications: Ferrous Sulfate 325 mg PO DAILY 04/11/16 [History] Lovastatin 40 mg PO DAILY 04/11/16 [History] Metoprolol Succinate 25 mg PO DAILY 04/11/16 [History] Tamsulosin HCl 0.4 mg [Flomax 0.4 MG] 0.4 mg PO DAILY 04/11/16 [History] Cinacalcet HCl 60 mg PO DAILY 10/21/19 [History] Meloxicam 7.5 mg [Mobic 7.5 MG] 7.5 mg PO DAILY 10/22/19 [History] Hx Tetanus, Diphtheria Vaccination/Date Given: Yes (up to date) Hx Influenza Vaccination/Date Given: Yes Hx Pneumococcal Vaccination/Date Given: Yes - Review of Systems Constitutional: No Fever, No Chills Eyes: No Symptoms Ears, Nose, & Throat: No Symptoms Respiratory: No Cough, No Dyspnea Cardiac: No Chest Pain, No Edema, No Syncope Abdominal/Gastrointestinal: No Abdominal Pain, No Nausea, No Vomiting, No Diarrhea Genitourinary Symptoms: No Dysuria Musculoskeletal: Joint Pain (left hip pain ), No Back Pain, No Neck Pain Skin: No Rash Neurological: No Dizziness, No Focal Weakness, No Sensory Changes Psychological: No Symptoms Endocrine: No Symptoms All Other Systems: Reviewed and Negative - Past Medical History Pertinent Past Medical History: Yes Neurological History: No Pertinent History ENT History: No Pertinent History Cardiac History: Congestive Heart Failure Respiratory History: Asthma Endocrine Medical History: No Pertinent History Musculoskeletal History: Arthritis GI Medical History: No Pertinent History History: No Pertinent History Psycho-Social History: No Pertinent History Male Reproductive Disorders: No Pertinent History Other Medical History: poor historian - Past Surgical History Past Surgical History: Yes Neuro Surgical History: No Pertinent History Cardiac: No Pertinent History Respiratory: No Pertinent History Gastrointestinal: No Pertinent History, Other Genitourinary: No Pertinent History Musculoskeletal: No Pertinent History Male Surgical History: No Pertinent History Other Surgical History: KIDNEY STONE REMOVAL. poor historian - Social History Smoking Status: Former smoker How long have you smoked: 30 years Exposure to second hand smoke: No Drug Use: none Patient Lives Alone: Yes - Nursing Vital Signs Nursing Vital Signs: Initial Vital Signs Temperature 98.0 F 01/01/20 20:08 Pulse Rate 88 01/01/20 20:08 Respiratory Rate 18 01/01/20 20:08 Blood Pressure 149/84 01/01/20 20:08 O2 Sat by Pulse Oximetry 99 01/01/20 20:08 Pain Scale Pain Intensity 7 - Physical Exam General Appearance: no apparent distress, alert Eye Exam: PERRL/EOMI, eyes nml inspection Ears, Nose, Throat Exam: normal ENT inspection, TMs normal, pharynx normal, moist mucous membranes Neck Exam: normal inspection, non-tender, supple, full range of motion Respiratory Exam: normal breath sounds, lungs clear, No respiratory distress Cardiovascular Exam: regular rate/rhythm, normal heart sounds, normal peripheral pulses Gastrointestinal/Abdomen Exam: soft, normal bowel sounds, No tenderness, No mass Back Exam: normal inspection, normal range of motion, No CVA tenderness, No vertebral tenderness Extremity Exam: normal inspection, normal range of motion, pelvis stable Neurologic Exam: alert, oriented x 3, cooperative, normal mood/affect, nml cerebellar function, nml station & gait, sensation nml, No motor deficits Skin Exam: normal color, warm, dry, No rash Lymphatic Exam: No adenopathy SpO2 Interpretation: normal SpO2: 99 Comments: 01/01/20 20:21 Left hip tenderness to palpation. No rebound or guarding in his abdomen. No obvious deformity, sensation intact, 2+ capillary refill, 2 point tactile discrimination intact. 5 out of 5 strength. Full range of motion with some pain. Compartments are soft, nontender. Overlying skin shows no tenting, bruising, ecchymosis. - Course Nursing assessment & vital signs reviewed: Yes Ordered Tests: Active Orders 24 hr Category Date Time Status PELVIS WITHOUT CONTRAST [CT] Stat Exams 01/01/20 20:44 Taken CULTURE,URINE Stat Lab 01/01/20 21:15 Received UA W/RFX UR CULTURE Stat Lab 01/01/20 21:15 Completed Medication Summary Discontinued Medications Generic Name Dose Route Start Last Admin Trade Name Dayronq PRN Reason Stop Dose Admin Acetaminophen 1,000 mg 01/01/20 20:12 01/01/20 20:18 Tylenol Extra Strength 500 Mg PO 01/01/20 20:13 1,000 mg STAT STA Administration Acetaminophen Confirm 01/01/20 20:17 Tylenol Extra Strength 500 Mg Administered 01/01/20 20:18 Dose 1,000 mg .ROUTE .STK-MED ONE Ibuprofen 600 mg 01/01/20 20:12 01/01/20 20:18 Motrin 600 Mg PO 01/01/20 20:13 600 mg STAT ONE Administration Ibuprofen Confirm 01/01/20 20:17 Motrin 600 Mg Administered 01/01/20 20:18 Dose 600 mg .ROUTE .STK-MED ONE Lab/Rad Data: Laboratory Results 01/01/20 Range/Units 21:15 Urine Color YELLOW (YELLOW) Urine Appearance CLOUDY (CLEAR) Urine pH 5.0 (5-6) Ur Specific [place] 1.014 (1.005-1.025) Urine Protein 30 (Negative) Urine Ketones NEGATIVE (NEGATIVE) Urine Blood SMALL (0-5) Isai/ul Urine Nitrite POSITIVE (NEGATIVE) Urine Bilirubin NEGATIVE (NEGATIVE) Urine Urobilinogen NEGATIVE (0-1) mg/dL Ur Leukocyte Esterase LARGE (NEGATIVE) Urine WBC (Auto) >100 (0-5) /HPF Urine RBC (Auto) 16-25 (0-2) /HPF U Epithel Cells (Auto) NONE (FEW) /HPF Urine Bacteria (Auto) MODERATE (NEGATIVE) /HPF Urine Mucus (Auto) SLIGHT (NEGATIVE) /HPF Urine Culture Reflexed YES (NO) Urine Glucose NEGATIVE (NEGATIVE) mg/dL - Progress Progress: improved Progress Note: 01/01/20 20:[address] scan of the pelvis looking for any pelvic fractures, obvious injury, soft tissue injury. Tylenol and ibuprofen as well. 01/01/20 22:01 No obvious fracture on pelvis CT. Patient does have an aortic abdominal aneurysm. I did discuss this with the patient. No obvious leakage or dissection from that today. Therefore, patient will need close follow-up with PCP for further imaging. Patient will return here for any new or changing symptoms. Otherwise unclear what patient's pain is outside of arthritis. Return here for any new or changing symptoms. - Departure Departure Disposition: Home Clinical Impression: Left hip pain, Abdominal aortic aneurysm (AAA) 3.0 cm to 5.5 cm in diameter in male Condition: Stable Critical Care Time: No Referrals: AYANNA FARR [Primary Care Provider] - Instructions: Contusion (DC) Additional Instructions: Follow up with PCP for further imaging of abdominal aortic aneurysm.
[2020-01-01 21:06] VITALS: PULSE 78
[2020-01-01 21:30] VITALS: BP 138/79
[2020-01-01 21:32] LABS: Appearance CLOUDY (CLEAR); Bacteria MODERATE /HPF (NEGATIVE); Bilirubin NEGATIVE (NEGATIVE); Blood SMALL Ery/ul (0-5); Glucose NEGATIVE (NEGATIVE); Ketones NEGATIVE (NEGATIVE); Leukocyte Esterase LARGE (NEGATIVE); Mucus SLIGHT /HPF (NEGATIVE); Nitrite POSITIVE (NEGATIVE); Protein,Urine Dip 30 (Negative); Specific Gravity 1.014 (1.005-1.025); Urobilinogen NEGATIVE mg/dL (0-1); WBC >100 /HPF (0-5)
--- NOTE | 2020-01-02 07:49 | XRAY ---
Indication: Left hip pain following injury. Multiple contiguous axial images obtained through the pelvis with special attention to the osseous structures. Comparison: August 30, 2014. Stable osteopenia, lower lumbar degenerative spondylosis, and moderate bilateral hip degenerative arthropathy. No acute fracture, dislocation, or suspicious bony lesions. There remains scattered aortoiliac calcifications with interval enlarging distal AAA today measuring 3.8 cm, previously 3.2 cm. No inguinal hernias or pathologic lymphadenopathy. Remaining visualized noncontrasted soft tissues unremarkable. Impression: 1. Negative acute fracture/dislocation. 2. Stable osteopenia and degenerative changes. 3. Enlarging distal AAA. Comment: Preliminary interpretation was made by [facility]. No critical discrepancy.
== END 2020-01-01 21:31 | disposition home or self-care (01) ==
LOC: ED 19:53
DX: M25.552 Pain in left hip (principal); I71.4 Abdominal aortic aneurysm, without rupture; X50.0XXA Overexertion from strenuous movement or load, initial encounter; X50.9XXA Other and unspecified overexertion or strenuous movements or postures, initial encounter; Y93.89 Activity, other specified; Y92.89 Other specified places as the place of occurrence of the external cause; Z79.899 Other long term (current) drug therapy; I50.9 Heart failure, unspecified; J45.909 Unspecified asthma, uncomplicated; Z87.442 Personal history of urinary calculi; Z72.0 Tobacco use
CPT/HCPCS: 72192; 81001; 87077; 87086; 87186; 99284; A9270-GY

== ENCOUNTER 2021-05-24 13:59 | Emergency (ER) | payer MEDICARE ==
[2021-05-24] MEDS ORDERED: BACIGUENT PACKET TP ONE (15:07)
[2021-05-24] MEDS ORDERED: XYLOCAINE 1% HCL 20 ML MDV IJ ONE (15:09)
[2021-05-24] MEDS ORDERED: BACIGUENT PACKET ONE (15:13)
[2021-05-24] MEDS ORDERED: XYLOCAINE 1% HCL 20 ML MDV ONE (15:13)
--- NOTE | 2021-05-24 15:28 | XRAY ---
Indication: Laceration. Comparison: None 3 view left hand demonstrates mild osteopenia, mild degenerative changes all IP/MCP joints, and mild degenerative changes 1st metacarpal multangular scaphoid articulation. No other bony, articular, or soft tissue abnormalities.
--- NOTE | 2021-05-24 15:38 | ERPHSYRPT ---
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 noted approx 4 cm lac to heel of L hand. bleeding controlled on arrival. was wrapped in gauze and coban on arrival. rates 9/10 pain that does not radiate out of hand. reports tetanus status up to date. Physician History: 81 years old patient with tetanus presented in the ER with chief complaint of laceration left proximal palmar aspect of hand after he accidentally fell off of a couple of steps from a ladder and tried to catch himself and sharp edge of AC metal causing laceration. Did not hit his head, no loss of consciousness. There was bleeding initially but stopped applying pressure. Complaining of dull aching to sharp pain in the laceration area, nonradiating, more with palpation. No difficulty movements of thumb or fingers. No injury anywhere else. Occurred: just prior to arrival Method of Injury: fell Quality: sharpness Severity of Pain-Max: moderate Severity of Pain-Current: moderate Extremities Pain Location: hand: left Modifying Factors: Worsens With: movement Associated Symptoms: none Allergies/Adverse Reactions: Sulfa (Sulfonamide Antibiotics) Allergy (Intermediate, Verified 05/24/21 14:14) Rash Penicillins Allergy (Mild, Verified 05/24/21 14:14) Rash Home Medications: Ferrous Sulfate 325 mg PO DAILY 04/11/16 [History] Lovastatin 40 mg PO DAILY 04/11/16 [History] Metoprolol Succinate 25 mg PO DAILY 04/11/16 [History] Tamsulosin HCl 0.4 mg [Flomax 0.4 MG] 0.4 mg PO DAILY 04/11/16 [History] Cinacalcet HCl 60 mg PO DAILY 10/21/19 [History] Meloxicam 7.5 mg [Mobic 7.5 MG] 7.5 mg PO DAILY 10/22/19 [History] Hx Tetanus, Diphtheria Vaccination/Date Given: Yes (up to date) Hx Influenza Vaccination/Date Given: Yes Hx Pneumococcal Vaccination/Date Given: Yes Immunizations Up to Date: Yes Travel Risk - International Travel Have you traveled outside of the country in past 3 weeks: No - Coronavirus Screening Are you exhibiting any of the following symptoms?: No Close contact with a COVID-19 positive Pt in past 14-21 Days: No - Vaccine Status Have you recieved a Covid-19 vaccination: Yes 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 - Vaccination Dates Dates if Unknown: 2 doses, unknown - Review of Systems Constitutional: No Symptoms Eyes: No Symptoms Ears, Nose, & Throat: No Symptoms Respiratory: No Symptoms Cardiac: No Symptoms Musculoskeletal: Injury Skin: Skin Lesions Neurological: No Symptoms Psychological: No Symptoms Immunological/Allergic: No Symptoms - Past Medical History Pertinent Past Medical History: Yes Neurological History: No Pertinent History ENT History: No Pertinent History Cardiac History: Congestive Heart Failure Respiratory History: Asthma Endocrine Medical History: No Pertinent History Musculoskeletal History: Arthritis GI Medical History: No Pertinent History History: No Pertinent History Psycho-Social History: No Pertinent History Male Reproductive Disorders: No Pertinent History Other Medical History: poor historian - Past Surgical History Past Surgical History: Yes Neuro Surgical History: No Pertinent History Cardiac: No Pertinent History Respiratory: No Pertinent History Gastrointestinal: No Pertinent History, Other Genitourinary: No Pertinent History Musculoskeletal: No Pertinent History Male Surgical History: No Pertinent History Other Surgical History: KIDNEY STONE REMOVAL. poor historian - Social History Smoking Status: Former smoker How long have you smoked: 30 years Exposure to second hand smoke: No Drug Use: none Patient Lives Alone: Yes - Nursing Vital Signs Nursing Vital Signs: Initial Vital Signs Temperature 98.7 F 05/24/21 14:08 Pulse Rate 94 H 05/24/21 14:08 Respiratory Rate 20 05/24/21 14:08 Blood Pressure 155/98 05/24/21 14:08 O2 Sat by Pulse Oximetry 96 05/24/21 14:08 Pain Scale Pain Intensity 3 - Physical Exam General Appearance: no apparent distress, alert Eyes, Ears, Nose, Throat Exam: normal ENT inspection Neck Exam: normal inspection, supple, full range of motion Cardiovascular/Respiratory Exam: chest non-tender, normal breath sounds, regular rate/rhythm Elbow/Forearm Exam: normal inspection, non-tender, no evidence of injury, normal ROM, abrasions Wrist Exam: normal inspection, non-tender, no evidence of injury, normal ROM Hand Exam: laceration (4 cm laceration left hyperthenar eminence oblique without active spurting. Intact distal neurovascular.) Neuro/Tendon Exam: normal sensation, normal motor functions, normal tendon functions Mental Status Exam: alert, oriented x 3, cooperative Skin Exam: normal color SpO2 Interpretation: normal SpO2: 97 O2 Delivery: Room Air Procedures - Splinting Location of Splint: Left, Hand, Wrist, Forearm Type of Splint: Velcro Splint - Laceration/Wound Repair Left Anterior Medial Volar Hand Time of Procedure: 15:17 Wound Location: Left Wound Length (cm): 4 Wound's Depth, Shape: superficial, linear Wound Explored: clean Irrigated: Yes Hibiclens Prep: Yes Anesthesia: 1% Lidocaine Volume Anesthetic (ccs): 5 Wound Debrided: moderate Wound Repaired With: sutures Suture Size/Type: 4-0, nylon Number of Sutures: 8 Sterile Dressing Applied?: Yes Splint Applied?: Yes Ordered Tests: Active Orders 24 hr Category Date Time Status HAND (2 VIEW) Stat Exams 05/24/21 15:20 Completed Medication Summary Discontinued Medications Generic Name Dose Route Start Last Admin Trade Name Freq PRN Reason Stop Dose Admin Bacitracin Zinc 0.9 gm 05/24/21 15:07 05/24/21 15:15 Bacitracin Packet 0.9 Gm Pckt TP 05/24/21 15:08 0.9 gm STAT ONE Administration Bacitracin Zinc Confirm 05/24/21 15:13 Bacitracin Packet 0.9 Gm Pckt Administered 05/24/21 15:14 Dose 1 gm .ROUTE .STK-MED ONE Lidocaine HCl 5 ml 05/24/21 15:09 05/24/21 15:11 Lidocaine Hcl 1% 20 Ml Mdv 20 Ml Ml IJ 05/24/21 15:10 5 ml STAT ONE Administration Lidocaine HCl Confirm 05/24/21 15:13 Lidocaine Hcl 1% 20 Ml Mdv 20 Ml Ml Administered 05/24/21 15:14 Dose 5 ml .ROUTE .STK-MED ONE - Progress Progress: improved, re-examined Progress Note: 05/24/21 15:38 Ruled out fracture dislocation. Laceration is repaired. Splint applied. Outpatient follow-up. Discussed signs symptoms of infection needing return to ER which he seems understanding. No injury anywhere else. Stable for discharge. Counseled pt/family regarding: diagnosis, need for follow-up, rad results - Departure Departure Disposition: Home Clinical Impression: Hand laceration Qualifiers: Encounter type: initial encounter Foreign body presence: without foreign body Laterality: left Qualified Code(s): S61.412A - Laceration without foreign body of left hand, initial encounter Condition: Stable Critical Care Time: No Referrals: MELANIE HAGEN MD [Primary Care Provider] - Follow up/PCP as directed Instructions: Laceration Repair With Stitches (DC) Additional Instructions: Keep it clean. Take Tylenol as needed for pain. Suture removal in 2 weeks. Follow-up with primary care for reevaluation. Return to ER for increasing swelling pain, redness, discharge or difficulty movements of finger/thumb etc.
== END 2021-05-24 15:47 | disposition home or self-care (01) ==
LOC: ED 13:59
DX: S61.412A Laceration without foreign body of left hand, initial encounter (principal); W26.9XXA Contact with unspecified sharp object(s), initial encounter; Y93.89 Activity, other specified; Y92.89 Other specified places as the place of occurrence of the external cause
CPT/HCPCS: 12002; 73120; 96372; 99284; L3908; A9270-GY

== ENCOUNTER 2022-05-01 06:50 | Day surgery (SDC) | payer MEDICARE ==
[2022-05-01] MEDS ORDERED: Lactated Ringers 1,000 ML IV ONE (07:47)
[2022-05-01] MEDS ORDERED: Lactated Ringers 1,000 ML IV SCH (08:00)
[2022-05-01] MEDS ORDERED: SUBLIMAZE 100 MCG/2 ML ONE (10:15)
[2022-05-01] MEDS ORDERED: Versed 2 MG/2 ML Injection ONE (10:15)
[2022-05-01] MEDS ORDERED: Xylocaine-Mpf 2% 5 Ml Vial ONE (10:15)
[2022-05-01] MEDS ORDERED: DIPRIVAN 200 MG/20 ML IV ONE (10:15)
[2022-05-01] MEDS ORDERED: Erythromycin 3.5 GM OPHTH. OP ONE (10:30)
[2022-05-01 10:47] VITALS: O2SAT 98
[2022-05-01 10:51] VITALS: BP 147/91; PULSE 59
== END 2022-05-01 11:07 | disposition home or self-care (01) ==
LOC: SDC 06:50
PROVIDERS: ATTEND Ophthalmology
DX: H25.811 Combined forms of age-related cataract, right eye (principal)
CPT/HCPCS: J2250; J2704; J3010; A9270-GY

== ENCOUNTER 2024-03-17 15:34 | Emergency (ER) | payer MEDICARE ==
[2024-03-17 16:07] VITALS: TEMP 97.5; O2SAT 99
--- NOTE | 2024-03-17 16:23 | ERPHSYRPT ---
- History of Present Illness Time Seen by Provider: 03/17/24 16:10 Source: patient Exam Limitations: no limitations Patient Subjective Stated Complaint: Groin pain(right sided ) Triage Nursing Assessment: Patient ambulated back to ED and transferred self to bed. Patient A+O X 3. Patient's skin pink, warm and dry. Patient complains of intermittent right sided groin pain 2/10 for the past several days. Patient has a hernia surgery scheduled in June with Dr. Beltre and called his office regarding his pain and was told to come to ED for eval. Patient's right tesiticle noted to be swollen. Physician History: 84-year-old male presents to our ED for evaluation per the request of his general surgeon for a CAT scan. Patient states that he has a hernia that his surgeon wants imaged. Patient has been experiencing intermittent pain at this location. Pain is now constant. Patient states the pain has improved significantly since arrival. Patient rates his pain 2 out of 10 and declined pain medication. No trauma no fever. No testicular pain. No nausea vomiting or diaphoresis. No chest pain or shortness of breath. Patient otherwise feels well he voices no other complaints or concerns at this time. Portions of this note were created with voice recognition technology. There may be grammatical, spelling, punctuation or sound alike errors Timing/Duration: today Severity: moderate Modifying Factors: Improves With: nothing Associated Symptoms: denies symptoms Allergies/Adverse Reactions: Sulfa (Sulfonamide Antibiotics) Allergy (Intermediate, Verified 03/17/24 15:52) Rash Penicillins Allergy (Mild, Verified 03/17/24 15:52) Rash Home Medications: No Reportable Medications [No Reported Medications] 05/01/22 [History] Hx Tetanus, Diphtheria Vaccination/Date Given: Yes (up to date) Hx Influenza Vaccination/Date Given: No Hx Pneumococcal Vaccination/Date Given: No Immunizations Up to Date: Yes Travel Risk - International Travel Have you traveled outside of the country in past 3 weeks: No - Emerging Infectious Disease Are you exhibiting symptoms associated with any current EIDs: No - Review of Systems Constitutional: No Symptoms, No Fever, No Chills Eyes: No Symptoms Ears, Nose, & Throat: No Symptoms Respiratory: No Symptoms, No Cough, No Dyspnea Cardiac: No Symptoms, No Chest Pain, No Edema, No Syncope Abdominal/Gastrointestinal: No Symptoms, No Abdominal Pain, No Nausea, No Vomiting, No Diarrhea Genitourinary Symptoms: No Symptoms, No Dysuria Musculoskeletal: No Symptoms, No Back Pain, No Neck Pain Skin: No Symptoms, No Rash Neurological: No Symptoms, No Dizziness, No Focal Weakness, No Sensory Changes Psychological: No Symptoms Endocrine: No Symptoms Hematologic/Lymphatic: No Symptoms Immunological/Allergic: No Symptoms All Other Systems: Reviewed and Negative - Past Medical History Pertinent Past Medical History: Yes Neurological History: No Pertinent History ENT History: No Pertinent History Cardiac History: No Pertinent History Respiratory History: No Pertinent History Endocrine Medical History: No Pertinent History Musculoskeletal History: Arthritis GI Medical History: No Pertinent History History: No Pertinent History Psycho-Social History: No Pertinent History Male Reproductive Disorders: No Pertinent History Other Medical History: poor historian; pt reports healhty with no diagnoses - Past Surgical History Past Surgical History: Yes Neuro Surgical History: No Pertinent History Cardiac: No Pertinent History Respiratory: No Pertinent History Gastrointestinal: No Pertinent History, Other Genitourinary: No Pertinent History Musculoskeletal: No Pertinent History Male Surgical History: No Pertinent History Other Surgical History: KIDNEY STONE REMOVAL. poor historian - Social History Smoking Status: Former smoker How long have you smoked: 30 years Exposure to second hand smoke: No Drug Use: none Patient Lives Alone: Yes - Social Determinants of Health Will the patient participate in the screening: Yes Do you worry about a steady place to live?: No Do you have any problems with any of the following?: No known problems In the past 12 months,have you had to go without utilities?: No Transportation Issues: No Has anyone in your support network made you feel unsafe?: No Have you or anyone in your house had to go without enough: No - Nursing Vital Signs Nursing Vital Signs: Initial Vital Signs Temperature 97.5 F 03/17/24 15:55 Pulse Rate 73 03/17/24 15:55 Respiratory Rate 20 03/17/24 15:55 Blood Pressure 165/90 03/17/24 15:55 O2 Sat by Pulse Oximetry 99 03/17/24 15:55 Pain Scale Pain Intensity 2 - Physical Exam General Appearance: no apparent distress, alert Eye Exam: PERRL/EOMI, eyes nml inspection Ears, Nose, Throat Exam: normal ENT inspection, TMs normal, pharynx normal, moist mucous membranes Neck Exam: normal inspection, non-tender, supple, full range of motion Respiratory Exam: normal breath sounds, lungs clear, airway intact, No respiratory distress Cardiovascular Exam: regular rate/rhythm, normal heart sounds, normal peripheral pulses Gastrointestinal/Abdomen Exam: soft, normal bowel sounds, No tenderness, No mass Back Exam: normal inspection, normal range of motion, No CVA tenderness, No vertebral tenderness Extremity Exam: normal inspection, normal range of motion, pelvis stable Neurologic Exam: alert, oriented x 3, cooperative, normal mood/affect, nml cerebellar function, nml station & gait, sensation nml, No motor deficits Skin Exam: normal color, warm, dry, No rash Lymphatic Exam: No adenopathy SpO2 Interpretation: normal SpO2: 99 O2 Delivery: Room Air - Course Nursing assessment & vital signs reviewed: Yes - CT Exams Abdomen/Pelvis CT Interpretation: Tele-radiologist Report (Lung granuloma, diverticulosis, gallstones, atrophic kidney, right renal cyst, enlarged prostate, margin AAA) Ordered Tests: Active Orders 24 hr Category Date Time Status ABDOMEN AND PELVIS W/0 CONTRAS [CT] Stat Exams 03/17/24 16:18 Completed - Progress Progress: improved Progress Note: 84-year-old male presents to our emergency department as a referral from his surgeon for a CAT scan. On physical exam it was observed that patient has a right inguinal hernia. The hernia was reduced in Trendelenburg position. Pain resolved. CAT scan completed. No hernia observed. Incidental lung granuloma diverticulosis and gallstones. There is an atrophic kidney as well as a right renal cyst. There is a enlarged prostate as well as a AAA. The AAA is believed to be enlarging. Physical exam reveals no pulsatile masses. Peripheral pulses are equal bilaterally. Patient is pain-free at the moment. Patient and his close friend were both advised of the enlarging AAA. They will follow-up at the patient's primary care doctor's office in the morning for further evaluation and treatment of this AAA. Patient is currently pain-free states he is ready for discharge. Patient declined pain medication. He voices no other complaints or concerns at this time. Portions of this note were created with voice recognition technology. There may be grammatical, spelling, punctuation or sound alike errors Complexity problem addressed is moderate acute complicated. No critical care time. Complex of data reviewed and analyzed is moderate. Test ordered test reviewed results analyzed and correlated clinically with history and physical exam. Risk of complication and or risk of morbidity/mortality of patient management is low. Vital stable. Time spent to discharge patient approximately 15 minutes. Plan of care established for shared decision making. No social determinants of health present impede follow-up. Portions of this note were created with voice recognition technology. There may be grammatical, spelling, punctuation or sound alike errors 03/17/24 17:29 Counseled pt/family regarding: diagnosis, need for follow-up, rad results - Departure Departure Disposition: Home Clinical Impression: Inguinal hernia, Lung granuloma, Diverticulosis, Gallstones, Atrophic kidney, Renal cyst, right, Enlarged prostate, Enlarging abdominal aortic aneurysm (AAA), Abdominal aortic aneurysm (AAA) 3.0 cm to 5.5 cm in diameter in male Condition: Stable Critical Care Time: No Referrals: AYANNA FARR [Primary Care Provider] - Follow up/PCP as directed Additional Instructions: Discharge/Care Plan PARTHROB RAUSCH was seen on 03/17/24 in the Emergency Room. The patient was counseled regarding Diagnosis,Lab results, Imaging studies, need for follow up and when to return to the Emergency Room. Prescriptions given: Discharge Note I have spoken with the patient and/or caregivers. I have explained the patient's condition, diagnosis and treatment plan based on the information available to me at this time. I have answered the patient's and/or caregiver's questions and addressed any concerns. The patient and/or caregivers have as good understanding of the patient's diagnosis, condition and treatment plan as can be expected at this point. The vital signs have been stable. The patient's condition is stable and appropriate for discharge from the emergency department. The patient will pursue further outpatient evaluation with the primary care physician or other designated or consulting physician as outlined in the discharge instructions. The patient and/or caregivers are agreeable to this plan of care and follow-up instructions have been explained in detail. The patient and/or caregivers have received these instruction. The patient/and or caregivers are aware that any significant change in condition or worsening of symptoms should prompt an immediate return to this or the closest emergency department or call 911.
--- NOTE | 2024-03-17 17:08 | XRAY ---
Indication: Pain. Multiple contiguous axial images obtained through the abdomen and pelvis without contrast. Comparison: May 30, 2015 Lung bases demonstrates minimal dependent atelectasis with stable left lower lobe calcified granuloma. No infiltrate or effusion. Heart not enlarged. Noncontrasted stomach and bowel loops appear nonobstructed with normal appendix. Worsening diffuse scattered descending and sigmoid diverticulosis without diverticulitis. Two stable gallstones, largest 1 cm. Left kidney is now atrophic. Right mid kidney demonstrates enlarging 7 cm cyst, previously 5.5 cm. Enlarged prostate gland impresses on the base of the bladder. No free fluid/air. Remaining liver, gallbladder, pancreas, spleen, adrenal glands, kidneys, ureters, and bladder are unremarkable for noncontrast exam. Again mild scattered aortoiliac calcifications. Enlarging 4.5 x 4.6 cm distal AAA, previously 3.2 x 3.2 cm. Osseous structures intact again with osteopenia and progressive worsening mild/moderate degenerative changes throughout spine. New minimal dextroscoliosis centered at L2 and new moderate degenerative changes both hips. Impression: 1. New left renal atrophy. Enlarging right renal cyst. 2. Arteriosclerotic disease with enlarging distal AAA. 3. Chronic findings including cholelithiasis, colonic diverticulosis, enlarged prostate gland, and chronic bony findings.
[2024-03-17 17:31] VITALS: BP 145/81
[2024-03-17 17:38] VITALS: PULSE 72; RESP 18
== END 2024-03-17 17:38 | disposition home or self-care (01) ==
LOC: ED 15:34
DX: K40.90 Unilateral inguinal hernia, without obstruction or gangrene, not specified as recurrent (principal); J84.10 Pulmonary fibrosis, unspecified; K57.90 Diverticulosis of intestine, part unspecified, without perforation or abscess without bleeding; K80.20 Calculus of gallbladder without cholecystitis without obstruction; N26.1 Atrophy of kidney (terminal); N28.1 Cyst of kidney, acquired; N40.0 Benign prostatic hyperplasia without lower urinary tract symptoms; I71.40 Abdominal aortic aneurysm, without rupture, unspecified; R10.2 Pelvic and perineal pain
CPT/HCPCS: 74176; 99283

== ENCOUNTER 2024-06-04 07:45 | Day surgery (SDC) | payer MEDICARE ==
--- NOTE | 2024-06-03 23:34 | HP ---
HISTORY OF PRESENT ILLNESS: The patient is an 84-year-old male who is seeing a bulge and having some pain in the right inguinal area. He has had this for years. He does have a history of COPD. PAST MEDICAL HISTORY: COPD, hypertension, thyroid, hyperlipidemia. HOME MEDICATIONS: Tramadol, Lexapro, lovastatin. ALLERGIES: Penicillin, sulfa. PAST SURGICAL HISTORY: Kidney stone removal, parathyroidectomy. SOCIAL HISTORY: Former smoker. FAMILY HISTORY: Heart attack. REVIEW OF SYSTEMS: CONSTITUTIONAL: Denies fever or chills. CHEST: Denies shortness of breath. CARDIOVASCULAR: Denies chest pain. ABDOMEN: Reports right inguinal hernia pain. PHYSICAL EXAMINATION: GENERAL: No acute distress. CARDIOVASCULAR: Regular rate and rhythm. RESPIRATORY: Nonlabored. No shortness of breath. ABDOMEN: Soft with reducible right inguinal hernia. IMPRESSION: Right inguinal hernia. PLAN: Right inguinal hernia repair with mesh with Dr. Frantz Beltre. This report was dictated for Dr. Beltre by Tiara Smith NP.
[2024-06-04] MEDS: Lactated Ringers 1,000 ML IV SCH (08:15)
[2024-06-04] MEDS: CLINDAMYCIN-D5W 600 MG/50 ML*** 600 MG/50 ML BAG IV SCH (08:20)
[2024-06-04 08:38] LABS: Absolute Neutrophil Ct (ANC) 3.62 x10^3/uL (1.78-5.38); BASOPHIL % 0.9 % (0.2-1.2); Basophil (Absolute #) 0.06 x10^3/uL (0.01-0.08); Hematocrit 39.1 % (40.1-51.0); Hemoglobin 12.5 g/dL (13.7-17.5); IMMATURE GRAN # 0.02 x10^3u/L (0.001-0.031); IMMATURE GRAN % 0.3 % (0.001-0.429); Lymphocyte (Absolute #) 2.23 x10^3/uL (1.32-3.57); Mean Cell Volume 94.2 fL (79.0-92.2); Mean Corpuscular Hemoglobin 30.1 pg (25.7-32.2); Mean Platelet Volume 9.9 fL (9.4-12.4); Monocyte (Absolute #) 0.63 x10^3/uL (0.30-0.82); Monocytes % 9.3 % (5.3-12.2); Neutrophil % 53.5 % (34.0-67.9); Platelet Count 175 x10^3/uL (163-337); Red Blood Count 4.15 x10^6/uL (4.63-6.08); Red Cell Distribution Width 13.2 % (11.6-14.4); White Blood Count 6.8 x10^3/uL (4.23-9.07)
[2024-06-04 09:00] LABS: ANION GAP 12.2 MEQ/L (5-15); Creatinine 1 2.64 mg/dL (0.66-1.25); Potassium 4.6 mmol/L (3.5-5.1)
[2024-06-04] MEDS ORDERED: Sensorcaine 0.25% 10 ML ONE (10:17)
[2024-06-04] MEDS ORDERED: KEFZOL 1 GM ONE (10:17)
[2024-06-04] MEDS ORDERED: Xylocaine 1% Vial 30 ML PF IJ ONE (10:17)
[2024-06-04] MEDS ORDERED: Marcaine Mpf 0.5% Vial 30 Ml ONE (10:17)
[2024-06-04] MEDS ORDERED: ROCURONIUM BROMIDE IV ONE (10:27)
[2024-06-04] MEDS ORDERED: DIPRIVAN 200 MG/20 ML IV ONE (10:27)
[2024-06-04] MEDS ORDERED: BREVIBLOC 100 MG/10 ML IV ONE (10:32)
[2024-06-04] MEDS ORDERED: Zofran 4 MG/2 ML VIAL ONE (11:01)
[2024-06-04] MEDS ORDERED: BRIDION 200MG/2ML IV ONE (11:01)
[2024-06-04 12:55] VITALS: BP 153/96; PULSE 54; RESP 18; TEMP 98.5
[2024-06-04 12:57] VITALS: O2SAT 99
--- NOTE | 2024-06-05 11:12 | OP ---
SURGERY DATE/TIME: 06/04/2024 [id number] PREOPERATIVE DIAGNOSIS: Symptomatic right inguinal hernia. POSTOPERATIVE DIAGNOSIS: Symptomatic right inguinal hernia. PROCEDURE: Right inguinal hernia, open, traditional Shouldice repair. SURGEON: Frantz Beltre MD ANESTHESIA: General. COMPLICATIONS: None. CONDITION: Stable. INDICATIONS: Patient had a symptomatic right inguinal hernia. He is elderly. He has borderline renal failure. Despite this, he has a quite symptomatic hernia. It is reduced today. It is marked. DESCRIPTION OF PROCEDURE AND FINDINGS: He was brought to surgery, general anesthetic, routine prep and drape. Curvilinear incision, 10 mL 0.25% Marcaine, external oblique opened. Cord skeletonized. A 4-inch indirect hernia sac. No sliding component. Highly ligated at the base with 0 Prolene. Floor was reinforced down and back in a Shouldice fashion with 0 Prolene. Good solid repair. External oblique closed with 0 Vicryl, Adry's approximated with 3-0 Vicryl, skin closed with bettina. Sterile dressing applied. Patient tolerated the procedure satisfactorily. Findings were discussed with the family in the waiting room.
== END 2024-06-04 12:53 | disposition home or self-care (01) ==
LOC: SDC 07:45
PROVIDERS: ATTEND Surgery
DX: K40.90 Unilateral inguinal hernia, without obstruction or gangrene, not specified as recurrent (principal); I10 Essential (primary) hypertension
CPT/HCPCS: 36415; 80048; 85025; 93005; J0690; J2405; J2704